=== PATIENT | male | born 1945 | race Caucasian/White ===

== ENCOUNTER 2024-08-05 16:29 | Inpatient (IN) | payer OTHER, SELFPAY ==
[2024-08-05] VITALS (9 sets, daily range): BP systolic 152–189; BP diastolic 72–100
[2024-08-05 13:03] LABS: % Basophils 0.7 % (0-2); % Eosinophils 1.6 % (0-6); % Immature Granulocytes 0.3 % (0-0.5); % Lymphocytes 18.6 % (20.5-51.1); % Neutrophils 71.8 % (42.2-75.2); Absolute Eosinophils 0.1 10^3/uL (0-0.7); Absolute Lymphocytes 1.1 10^3/uL (1.2-3.4); Absolute Monocytes 0.4 10^3/uL (0.1-0.6); Absolute Neutrophils 4.4 10^3/uL (1.4-6.5); Hematocrit 28.9 % (39.0-52.0); Hemoglobin 9.1 g/dL (13.0-18.0); Mean Corp Hgb Conc. 31.5 g/dL (33.0-37.0); Mean Corpuscular Hgb 30.5 pg (27.0-31.0); Mean Platelet Volume 10.1 fL (7.4-10.4); Nucleated Red Blood Cells % 0 % (-); Platelet Count 266 10^3/uL (130-400); Red Blood Cell Count 2.98 10^6/uL (4.70-6.10); Red Cell Dist. Width 14.5 % (11.5-14.5); White Blood Cell Count 6.1 10^3/uL (4.8-10.8)
[2024-08-05 13:35] LABS: ALT (SGPT) 10 U/L (0-50); AST (SGOT) 12 U/L (17-59); Albumin 4.6 g/dl (3.5-5.0); Alkaline Phosphatase 61 U/L (38-126); Blood Urea Nitrogen 89 mg/dl (9-20); Calcium 9.2 mg/dl (8.4-10.2); Carbon Dioxide 9 mmol/L (22-30); Chloride 112 mmol/L (98-107); Glucose 105 mg/dl (70-99); Potassium 6.9 mmol/L (3.5-5.1); Sodium 141 mmol/L (135-145); Total Bilirubin 0.4 mg/dl (0.2-1.3); Total Protein 7.3 g/dl (6.3-8.2)
--- NOTE | 2024-08-05 13:39 | ED.GENMED ---
History of Present Illness
General
Chief Complaint: Abnormal Lab Value
Source: patient and family
Time Seen by Provider: 08/05/24 12:52
History of Present Illness
History of Present Illness:
78-year-old male who admits that he does not truly seek preventative medical care who presents for evaluation after he had labs as an outpatient that showed suspected renal failure. The patient does admit that sometimes he has had urinating
difficulties. He states he often wakes up and only to urinate will you have to urinate every 2 hours. Patient states he has had a catheter in the past. Over the last few months has had some fatigue, weakness, weight loss and loss of appetite. No
vomiting. No fevers. Does admit to abdominal distention but denies pain. No hematuria.
Past History
Past History
ED Past Medical History: Other ('Urinating problems'.)
ED Past Surgical History: Orthopedic
Social History
Tobacco: Non-smoker
Personal:
Employment: Retired
Phy Exam
Physical Exam
Physical Exam:
CONSTITUTIONAL Patient alert and oriented to person, place and time. Well-appearing. Vital signs reviewed.
HEAD atraumatic, normocephalic.
EYES eyelids normal to inspection, Pupils equally round and reactive to light, Extraocular muscles intact, Conjunctiva normal, Sclera normal.
NECK normal range of motion, Trachea midline, no jugular venous distention.
RESPIRATORY CHEST No respiratory distress noted, Chest expansion equal, Bilateral breath sounds clear.
CARDIOVASCULAR regular rate and rhythm, Heart sounds normal.
ABDOMEN distention of lower abdomen up to the umbilicus. Bedside ultrasound shows that it is suspected to be the urinary bladder.
BACK normal inspection, no obvious deformities
UPPER EXTREMITY range of motion normal, Motor strength normal, no cyanosis, no edema.
LOWER EXTREMITY range of motion normal, Motor strength normal, no cyanosis, no edema.
NEURO Speech normal, No focal motor deficits, [place] coma scale 15, Memory normal, Cranial Nerves intact to screening exam.
SKIN skin warm, dry, and normal in color.
PSYCHIATRIC patient oriented to person place and time, Normal affect.
Course
Orders/Labs/Results
Orders:
Orders
08/05/24 12:49
CMP [Comprehensive Metabolic Panel] Urgent
Complete Blood Count/With Diff Urgent
Magnesium Urgent
Comment: ADD ON
08/05/24 13:20
Add On- LAB Urgent
Tests Added?: Mg
08/05/24 13:36
CT Abd/pel Without Iv Or Oral Urgent
Comment:
Reason For Exam: acute renal failure, weak
08/05/24 13:39
Garner Placement- Treatment ONCE
Reason for insertion: Acute Retention
08/05/24 13:40
Electrocardiogram (*1) Urgent
Reason for Study: Fatigue / Weakness
EKG- Treatment ONCE
08/05/24 13:48
Urinalysis Reflex To Culture Urgent
Date Specimen was Collected: 08/05/24
Time Specimen was Collected: 13:47
08/05/24 13:52
Sodium Bicarbonate 50 meq IV NOW STA
Sodium Zirconium Cyclosilicate [Lokelma] 10 gram PO NOW STA
08/05/24 13:54
Dextrose 50%-Water [Dextrose 50% Syringe] 12.5 grams IV [id number] PRN
Dextrose 50%-Water [Dextrose 50% Syringe] 25 grams IV NOW STA
Insulin Human Regular [Novolin R] 10 units IV NOW STA
08/05/24 13:55
Bedside Glucose- Treatment DIRECTED
Bedside Glucose- Treatment ONCE
08/05/24 18:24
Potassium Urgent
Comment: draw 4 hours after Lokelma administered
Abnormal Lab Results
08/05/24
12:49
RBC 2.98 L 10^6/uL
(4.70-6.10)
Hgb 9.1 L g/dL
(13.0-18.0)
Hct 28.9 L %
(39.0-52.0)
MCV 97.0 H fL
(80.0-94.0)
MCHC 31.5 L g/dL
(33.0-37.0)
Absolute Lymphs (auto) 1.1 L 10^3/uL
(1.2-3.4)
Lymphocytes % 18.6 L %
(20.5-51.1)
Potassium 6.9 H* mmol/L
(3.5-5.1)
Chloride 112 H mmol/L
(98-107)
Carbon Dioxide 9 L* mmol/L
(22-30)
BUN 89 H mg/dl
(9-20)
Creatinine 6.4 H* mg/dL
(0.7-1.3)
Glucose 105 H mg/dl
(70-99)
AST 12 L U/L
(17-59)
08/05/24 12:49
Vital Signs
Initial and Last Documented VS:
Initial Vital Signs
Temp Pulse Resp BP Pulse Ox
98.4 F 99 16 183/89 100
08/05/24 12:43 08/05/24 12:43 08/05/24 12:43 08/05/24 12:43 08/05/24 12:43
Last Documented Vital Signs
Temp Pulse Resp BP Pulse Ox
98.4 F 82 20 189/88 100
08/05/24 12:43 08/05/24 13:15 08/05/24 13:15 08/05/24 13:11 08/05/24 13:18
MDM/Problems Addressed
MDM/Problems Addressed:
Acute urinary retention, acute hyperkalemia, acute renal failure, acute hypertension
*Radiology
Radiology exam reviewed: preliminary read by ED provider (No free air but hydro noted, await radiology read)
*Pulse Oximetry
Patient hypoxic: no
*EKG
Interpreted by ED Provider?: Yes
Interpretation: abnormal
Rate: normal
Rhythm: sinus
Davin: left axis deviation
QRS Pattern: left vent hypertrophy
Ischemia: non-specific ST changes
*Critical Care Note
Total Time (30-74mins, 75-104mins- exclusive of procedures): 40 minutes
Data Reviewed
Review of Other/Old Records Reveals: Labs (Palpitations labs reviewed showing elevated PSA, elevated creatinine)
Source: patient and family
Prescriptions/Medications Considered But Not Given:
Considered antibiotics but urinalysis negative
Patient Management
Discussion with other providers: Hospitalist and Group Practice Pediatrician (Case discussed with nephrology who will evaluate the patient.)
Escalation/DeEscalation of care consider admission/obs:
78-year-old male who presents with fatigue and weakness. Found to be in acute renal failure with more than 3 L in his bladder on Garner catheter placement. Being seen by nephrology. Check CT. Admit. Hyperkalemia meds given. Does have slight
widening of his QRS on EKG but may be related to LVH.
ED Attending Note
-
Portions of this chart may have been created with voice recognition software.� Occasional wrong word or��sound alike� substitutions may have occurred due to the inherent limitations of voice recognition software.
Discharge Plan
Departure
Patient Disposition: Admit
Date of Disposition: 08/05/24
Time of Disposition: 14:34
Admit to: IMU
Presentation/result/management discussed w/ accepting MD/DO: Hospitalist
Discharge Problem:
Acute renal failure (ARF), Acute hyperkalemia, Acute on chronic urinary retention
Prescriptions:
No Action
No Current Medications
0
Interventions
Interventions:
*Risk Screen - Suicide Last Done: 08/05/24 13:18
*General Assessment Last Done: 08/05/24 12:43
*Neglect/Abuse Screening Last Done: 08/05/24 13:18
ED- Fall Risk Assessment Last Done: 08/05/24 13:18
*ED COVID-19 Vaccine History Last Done: 08/05/24 12:43
Discharge Date and Time
Print Language: MAURITIAN
[2024-08-05] MEDS: LOKELMA 10 GRAM PO (14:04)
[2024-08-05] MEDS: SODIUM BICARBONATE 50 MEQ IV (14:05)
[2024-08-05] MEDS: DEXTROSE 50% SYRINGE 25 GRAMS IV (14:05)
[2024-08-05] MEDS: NOVOLIN R 10 UNITS IV (14:05)
[2024-08-05 14:16] LABS: Urine Albumin Trace (Neg - Trace); Urine Bilirubin Negative (Negative); Urine Character Clear (Clear); Urine Color Yellow; Urine Glucose Negative (Negative); Urine Ketone Negative (Negative); Urine Leukocyte Negative (Negative); Urine Nitrite Negative (Negative); Urine Occult Blood Negative (Negative); Urine Urobilinogen Negative (Neg - 1+)
--- NOTE | 2024-08-05 15:28 | W.CON.NEPH ---
Consultation
-
Date/Time Consultation Requested: 08/05/24 1400
Date/Time Consultation Performed: 08/05/24 1530
Requesting Provider: Dr. Valenzuela
Performing Provider: Dr. Bruce
Reason for Consultation: SONIA, hyperkalemia
Medical History
-
Chief Complaint: SONIA
Past Medical History
BPH
left TEJAL
Social History
Tobacco: Non-Smoker
Alcohol: Occasional
Family History
no CKD
Family History: Not Pertinent
Allergies / Home Medications
Allergy/AdvReac Type Severity Reaction Status Date / Time
No Known Allergies Allergy Verified 08/05/24 12:45
�Medication �Instructions �Recorded �Confirmed �Type
No Meds [No Current Medications] 08/05/24 08/05/24 History
Review of Systems
-
polyuria, low volumes
decreased appetite, weight loss 20#/year
All other systems: Negative unless noted
Physical Exam
Vital Signs
Vital Signs
Temp Pulse Resp BP Pulse Ox
98.4 F 82 20 189/88 100
08/05/24 12:43 08/05/24 13:15 08/05/24 13:15 08/05/24 13:11 08/05/24 13:18
Lab Results
WBC 6.1 10^3/uL (4.8-10.8) 08/05/24 12:49
RBC 2.98 10^6/uL (4.70-6.10) L 08/05/24 12:49
Hgb 9.1 g/dL (13.0-18.0) L 08/05/24 12:49
Hct 28.9 % (39.0-52.0) L 08/05/24 12:49
Plt Count 266 10^3/uL (130-400) 08/05/24 12:49
Sodium 141 mmol/L (135-145) 08/05/24 12:49
Chloride 112 mmol/L (98-107) H 08/05/24 12:49
Carbon Dioxide 9 mmol/L (22-30) L* 08/05/24 12:49
BUN 89 mg/dl (9-20) H 08/05/24 12:49
Creatinine 6.4 mg/dL (0.7-1.3) H* 08/05/24 12:49
eGFR 8.30 08/05/24 12:49
Glucose 105 mg/dl (70-99) H 08/05/24 12:49
Calcium 9.2 mg/dl (8.4-10.2) 08/05/24 12:49
Albumin 4.6 g/dl (3.5-5.0) 08/05/24 12:49
Physical Exam
Patient is awake alert oriented and in no distress. Mood and affect were pleasant, insight and judgment were good. Pupils are equal round and reactive to light, extraocular movements are intact, sclera were anicteric. Hearing was normal, ears and
nose are intact. Oropharynx was clear. Neck was supple with trachea midline and no thyromegaly. Heart was regular rate and rhythm without rubs. Lower extremities without edema. Lungs were clear to auscultation bilaterally and with normal
excursion. Abdomen was soft, nontender, with normal active bowel sounds, and no hepatosplenomegaly. Skin was without rash and with normal turgor.
Data Reviewed
-
CT Scan: Image Personally Visualized and interpreted (CT scan on 08/05/2024 by my reading shows severe bilateral hydronephrosis, hyperlucent lesion L2)
Labs: Labs Reviewed by me
Old Records: Reviewed (On 08/04/2024 creatinine 5.86, potassium 6.5, bicarbonate 14, hemoglobin 9.1, PSA 24.7, A1c 5.4)
Assessment/Plan
-
Assessment
acute kidney injury
Bilateral hydronephrosis
BPH
Elevated PSA
Weight loss, decreased appetite
Hyperkalemia
Metabolic acidosis
Plan
Obtain records from primary for blood work 2 years ago
Treat potassium medically
Serial BMP
IV fluids with bicarbonate
Flomax
Urology evaluation
Await CT read regarding hyperlucent L2 lesion
[2024-08-05 15:33] LABS: Glucose - Point of Care 62 mg/dl (70-99)
[2024-08-05 15:55] LABS: Glucose - Point of Care 86 mg/dl (70-99)
--- NOTE | 2024-08-05 16:17 | HPS.HSE ---
Family Physician
-
Family Physician: Andrew Turner
Chief Complaint
-
Abnormal outpatient laboratory work-up
History of Present Illness
Patient is a 78 years old male with no prior medical history, not following with physicians regularly, not on any prescriptive medications who was brought to urgent care center today earlier by family with concern for decreased appetite close to 15
pounds weight loss over a year. Apparently blood work was abnormal and consistent with acute kidney failure and significantly elevated creatinine. Patient presents to the emergency room today with given concern. Upon evaluation in the emergency
room patient was found to have severe urinary retention with Garner catheter placed and close to 2 L of urine removed. Additional and repeated workup consistent with severe hyperkalemia, SONIA with metabolic acidosis.
Medical History
Past Medical History
Past Medical History: Reports None
Past Surgical History: Reports None
Social History
Tobacco: Non-smoker
Alcohol: None
Drug: None
Personal:
Living: With Family
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
Family History
Family History: Not pertinent
Allergies / Home Medications
Allergies reflects when Allergies were last updated in [facility].
Home Medications with original date entered in [facility]
Allergy/Medication List:
Allergies
Allergy/AdvReac Type Severity Reaction Status Date / Time
No Known Allergies Allergy Verified 08/05/24 12:45
Home Medications
No Meds [No Current Medications] 08/05/24
Review of Systems
-
A 12 point ROS was completed and negative except as noted: Yes
Respiratory: Reports No Symptoms
Cardiac: Reports No Symptoms
Abdomen/GI: Reports No Symptoms
: Reports Frequency and Difficulty Voiding; Denies Dysuria
Musculoskeletal: Reports No Symptoms
Physical Exam
Vital Signs
Vital Signs
Temp Pulse Resp BP Pulse Ox
98.4 F 94 14 163/76 99
08/05/24 12:43 08/05/24 15:45 08/05/24 15:45 08/05/24 15:30 08/05/24 15:45
Physical Exam
General: Well Developed, Well Nourished and No Apparent Distress
HEENT: NormoCephalic, Moist mucous membranes and Atraumatic
Respiratory: Clear
Cardiac: S1/S2 and Regular Rhythm; No Murmur or Rub
GI: Soft, Non Tender, Non Distended and Normal Bowel Sounds; No Organomegaly
Rectal: Deferred by Provider
Genito-urinary: Garner
Musculoskeletal: No Clubbing, No Cyanosis and No Edema
Skin: No Rash
Neuro: Awake, Alert, Oriented, AO x 3 and Nonfocal/grossly intact
Laboratory Results
-
08/05/24 12:49
08/05/24 18:24
Laboratory Results
Total Bilirubin 0.4 mg/dl (0.2-1.3) 08/05/24 12:49
AST 12 U/L (17-59) L 08/05/24 12:49
ALT 10 U/L (0-50) 08/05/24 12:49
Alkaline Phosphatase 61 U/L (38-126) 08/05/24 12:49
Data Reviewed
-
Lab Data: Labs Reviewed by me
Impression/Plan
-
IMPRESSION:
75 years old male with no prior medical history who presents with generalized fatigue, low oral intake, weight loss, SONIA with severe urinary retention.
SONIA with severe obstructive uropathy and hydronephrosis
Elevated PSA 24 on outpatient blood work on 08/04/24
Suspected BPH
Metabolic acidosis
Hyperkalemia
Chronic normocytic anemia.
Reported significant weight loss and poor appetite
PLAN:
CT of the abdomen pelvis pending, in my review with his significant bilateral hydronephrosis.
Garner catheter placed in ED with 3 L urine drained.
Hyperkalemia treated
Maintain Garner
Urology/nephrology consultation.
IV fluids with bicarbonate baseline serial BMP.
Start Flomax
Low potassium diet
Chronic normocytic anemia baseline patient reports colonoscopy about 2 years ago.
Check iron stores
Follow hemoglobin
Full code
Mechanical DVT phylaxis
[2024-08-05] MEDS: SODIUM BICARBONATE 1150 MEQ IV (16:25)
[2024-08-05 17:09] LABS: Blood Urea Nitrogen 91 mg/dl (9-20); Calcium 8.6 mg/dl (8.4-10.2); Carbon Dioxide 12 mmol/L (22-30); Chloride 114 mmol/L (98-107); Glucose 104 mg/dl (70-99); Iron 44 ug/dl (49-181); Percent Saturation 18 % (20-50); Potassium 5.6 mmol/L (3.5-5.1); Sodium 143 mmol/L (135-145); Total Iron Binding Capacity 234 ug/dl (261-462)
[2024-08-05 17:21] LABS: eGFR 9.54
--- NOTE | 2024-08-05 18:37 | PTCARENOTE ---
Pt arrived to floor from ED via stretcher. Ambulated to unit bed with minimal assistance holding Garner bag inserted in ED. Punch red blood in Garner. Pe denying pain. Bicarb gtt infusing. Health historty obtained with patient and family members at
bedside infusing.
[2024-08-05] MEDS: FLOMAX 0.4 MG PO (20:47)
[2024-08-06 03:55] VITALS: BP 153/75
[2024-08-06 05:36] LABS: % Basophils 0.5 % (0-2); % Eosinophils 2.7 % (0-6); % Immature Granulocytes 0.2 % (0-0.5); % Lymphocytes 14.8 % (20.5-51.1); % Monocytes 8.8 % (1.7-9.3); Absolute Eosinophils 0.2 10^3/uL (0-0.7); Absolute Lymphocytes 0.9 10^3/uL (1.2-3.4); Absolute Monocytes 0.5 10^3/uL (0.1-0.6); Absolute Neutrophils 4.3 10^3/uL (1.4-6.5); Hematocrit 24.5 % (39.0-52.0); Hemoglobin 8.2 g/dL (13.0-18.0); Mean Corp Hgb Conc. 33.5 g/dL (33.0-37.0); Mean Corpuscular Volume 89.7 fL (80.0-94.0); Nucleated Red Blood Cells % 0 % (-); Platelet Count 216 10^3/uL (130-400); Red Blood Cell Count 2.73 10^6/uL (4.70-6.10); Red Cell Dist. Width 14.2 % (11.5-14.5); White Blood Cell Count 5.8 10^3/uL (4.8-10.8)
[2024-08-06] MEDS: SODIUM BICARBONATE 1150 MEQ IV ×2 (05:59→22:47)
[2024-08-06 06:29] LABS: Blood Urea Nitrogen 82 mg/dl (9-20); Calcium 8.6 mg/dl (8.4-10.2); Carbon Dioxide 15 mmol/L (22-30); Chloride 110 mmol/L (98-107); Glucose 103 mg/dl (70-99); Potassium 5.2 mmol/L (3.5-5.1); Sodium 143 mmol/L (135-145)
[2024-08-06 06:47] LABS: eGFR 9.96
[2024-08-06 07:44] VITALS: BP 164/82
[2024-08-06] MEDS: FLOMAX 0.4 MG PO (08:09)
--- NOTE | 2024-08-06 09:59 | W.PN.URO.CBU ---
Today's Communication / Plan
-
teach pt leg bag and flanagan care
Assessment / Plan
-
bph r/out acp but creatinie down with flanagan will keep flanagan and for now no perc neph tubes nor prostate bx
Diagnosis
-
Date of Service: August 06, 2024
-
Patient Diagnosis: acute on chronuic renal failure in pt with 3 liters urine in bladder and psa 24 bilateal hydro
Post Op Day:
Subjective
-
feel stronger
Objective
-
Vital Signs
Temp Pulse Resp BP Pulse Ox
98.4 F 80 16 164/82 99
08/06/24 07:44 08/06/24 07:44 08/06/24 07:44 08/06/24 07:44 08/06/24 07:44
Intake and Output
08/05/24 08/06/24 08/07/24
06:59 06:59 06:59
Intake Total 1200 / 1200
Output Total 3500 / 3500
Balance -2300 / -2300
Intake:
Oral fluids 240 / 240
IV fluids (Total) 960 / 960
Output:
Urine, Flanagan 3500 / 3500
Laboratory Results
08/06/24 05:23
08/06/24 05:23
Review of Systems
-
: Difficulty Voiding
Physical Exam
-
General - well developed, well nourished, no acute distress
Chest - clear bilaterally
Abdomen - soft, non-tender, positive bowel sounds, no CVAT, no incisional pain or distention
Genitalia - normal
Rectal - normal
Skin - warm & dry with no rash
Neuro - AOx3, no motor deficits
Extremities - no clubbing, no cyanosis, no edema
Incision - clean, dry
Dressing - clean, dry, intact
Care Review
Data Reviewed
Discussed with: Hospitalist and Nursing
CT Scan: Image Pers Reviewed
--- NOTE | 2024-08-06 10:36 | CM ---
Patient seen at bedside. Patient stated that he lives with his in a split level home. patient has no DME previously and has not needed SNF or VN. Patient stated that his PCP is Dr. Turner but he has been moving and he has an appointment in
October with him. Patient [facility] and plan is to go home. Patient stated that he is very independent. Patient is awaiting his and son to visit shortly. CM will continue to follow for discharge planning needs.
Plan; home with VN vs home with no needs
--- NOTE | 2024-08-06 10:55 | W.PN.NEPH.PH ---
Today's Communication / Plan
-
IVF
Assessment/Plan
-
Assessment
acute kidney injury
Bilateral hydronephrosis
BPH
Elevated PSA
Weight loss, decreased appetite
Hyperkalemia
Metabolic acidosis
Plan
Obtain records from primary for blood work 2 years ago
follow BMP
continue IV fluids with bicarbonate
Flomax
-
-
Date of Service: August 06, 2024
CC / HPI / ROS
-
Chief Complaint:
SONIA
History of Present Illness:
SONIA/Cr down to 5.5
nonoliguric with flanagan for obstructive uropathy
K down to 5.2
acidosis improving on IVF
Review of Systems:
no CP/SOB
Labs
-
Labs:
WBC 5.8 10^3/uL (4.8-10.8) 08/06/24 05:23
RBC 2.73 10^6/uL (4.70-6.10) L 08/06/24 05:23
Hgb 8.2 g/dL (13.0-18.0) L 08/06/24 05:23
Hct 24.5 % (39.0-52.0) L 08/06/24 05:23
Plt Count 216 10^3/uL (130-400) 08/06/24 05:23
Sodium 143 mmol/L (135-145) 08/06/24 05:23
Potassium 5.2 mmol/L (3.5-5.1) H 08/06/24 05:23
Chloride 110 mmol/L (98-107) H 08/06/24 05:23
Carbon Dioxide 15 mmol/L (22-30) L 08/06/24 05:23
BUN 82 mg/dl (9-20) H 08/06/24 05:23
Creatinine 5.5 mg/dL (0.7-1.3) H* 08/06/24 05:23
eGFR 9.96 08/06/24 05:23
Glucose 103 mg/dl (70-99) H 08/06/24 05:23
Calcium 8.6 mg/dl (8.4-10.2) 08/06/24 05:23
Albumin 4.6 g/dl (3.5-5.0) 08/05/24 12:49
Physical Exam
-
Vital Signs:
Vital Signs
Temp Pulse Resp BP Pulse Ox
98.4 F 80 16 164/82 99
08/06/24 07:44 08/06/24 07:44 08/06/24 07:44 08/06/24 07:44 08/06/24 07:44
Cardiovascular:: Regular rate and rhythm
Respiratory:: Bilateral: CTA
Lung Excursion:: Normal
Abdomen:: Nontender and Soft
Bowel Sounds:: Normal
Extremity Edema:: None: Bilateral:
Flanagan Catheter: Yes
[2024-08-06 11:06] VITALS: BP 142/70
[2024-08-06 11:41] VITALS: BMI 23.8
[2024-08-06 11:43] VITALS: BMI 23.6
[2024-08-06] MEDS: FERRLECIT 110 MG IV (14:47)
--- NOTE | 2024-08-06 14:49 | W.PN.HOSP.TC ---
Today's Communication/Plan
-
Maintain Garner catheter.
Continue alkalinized IV fluids
Follow BMP
Assessment / Plan
Assessment / Plan
IMPRESSION:
75 years old male with no prior medical history who presents with generalized fatigue, low oral intake, weight loss, SONIA with severe urinary retention.
SONIA with severe obstructive uropathy and hydronephrosis
Elevated PSA 24 on outpatient blood work on 08/04/24
Suspected BPH
Metabolic acidosis
Hyperkalemia
Chronic normocytic anemia.
Reported significant weight loss and poor appetite
PLAN:
CT of the abdomen pelvis pending, in my review with his significant bilateral hydronephrosis.
Garner catheter placed in ED with 3 L urine drained.
Hyperkalemia treated
Maintain Garner
Urology/nephrology consultation.
IV fluids with bicarbonate baseline serial BMP.
Started on Flomax
Low potassium diet
Chronic normocytic anemia baseline patient reports colonoscopy about 2 years ago.
Check iron stores
Follow hemoglobin
Full code
Mechanical DVT phylaxis
Anticipated Discharge: > 48 hours
Subjective/Interval History
-
Date of Service: August 06, 2024
Objective Data
-
Labs:
Laboratory Results
08/06/24
05:23
WBC 5.8
Hgb 8.2 L
Hct 24.5 L
Plt Count 216
Sodium 143
Potassium 5.2 H
Chloride 110 H
Carbon Dioxide 15 L
BUN 82 H
Creatinine 5.5 H*
Glucose 103 H
Calcium 8.6
Vital Signs:
Vital Signs
Temp Pulse Resp BP Pulse Ox
98 F 89 16 142/70 98
08/06/24 11:06 08/06/24 11:06 08/06/24 11:06 08/06/24 11:06 08/06/24 11:06
I&O
08/05/24 08/06/24 08/07/24
06:59 06:59 06:59
Intake Total 1200 / 1200
Output Total 3500 / 3500
Balance -2300 / -2300
Physical Exam
-
General: Well Developed and No Apparent Distress
HEENT: Normocephalic, Atraumatic and Moist Mucous Membranes
Respiratory: Clear to Auscultation
Cardiac: Regular Rhythm and S1/S2; Negative Murmur, Rub or Gallop
GI: Soft, Nontender, Nondistended and Normal Bowel Sounds; Negative Organomegaly
Rectal: Deferred by Provider
Genito-urinary: Garner
Musculoskeletal: No Clubbing, No Cyanosis and No Edema
Skin: Negative Rash
Neuro: Nonfocal/Grossly Intact
[2024-08-06 15:22] VITALS: BP 139/68
[2024-08-06 18:51] LABS: Hepatitis C Antibody Negative (Negative)
[2024-08-06 19:48] VITALS: BP 128/64
[2024-08-06 23:00] VITALS: BP 118/83
[2024-08-07] VITALS (7 sets, daily range): BP systolic 118–154; BP diastolic 64–91; BMI 21.6
[2024-08-07 05:50] LABS: Hematocrit 23.3 % (39.0-52.0); Hemoglobin 7.9 g/dL (13.0-18.0); Mean Corp Hgb Conc. 33.9 g/dL (33.0-37.0); Mean Corpuscular Hgb 29.8 pg (27.0-31.0); Mean Corpuscular Volume 87.9 fL (80.0-94.0); Mean Platelet Volume 10.1 fL (7.4-10.4); Platelet Count 222 10^3/uL (130-400); Red Blood Cell Count 2.65 10^6/uL (4.70-6.10); Red Cell Dist. Width 13.9 % (11.5-14.5); White Blood Cell Count 6.6 10^3/uL (4.8-10.8)
[2024-08-07 06:08] LABS: Blood Urea Nitrogen 80 mg/dl (9-20); Calcium 8.4 mg/dl (8.4-10.2); Carbon Dioxide 25 mmol/L (22-30); Chloride 105 mmol/L (98-107); Estimated Creatinine Clearance 12 ml/min; Glucose 93 mg/dl (70-99); Potassium 4.5 mmol/L (3.5-5.1); Sodium 141 mmol/L (135-145)
--- NOTE | 2024-08-07 06:23 | PTCARENOTE ---
Tele monitor alarming as irreg HR and Afib, HR 90s-100s. EKG Aflutter w/ variable AV block, left ventricular hypertrophy w/ repolarization abnormality and prolonged QT. Pt asymptomatic, BP 118/71. VARIETY PERFORMER notified that K+ was within normal limits but
no mag has been drawn today. Stat add-on mag added. Plan of care ongoing.
--- NOTE | 2024-08-07 06:37 | W.PN.UPDATE ---
Update Note
Progress Note Update
RN notified INSURANCE CLAIMS PROCESSOR of irregular rhythm, EKG confirms Aflutter with variable AV block. Previous EKG Sinus Rhythm with 1st degree A-V block with occasional premature ventricular complexes. will add mag, TSH, Troponin, to the lab. Patient is asymptomatic
with stable VS. Will consult Application Counselor.
[2024-08-07 07:11] LABS: Magnesium 1.5 mg/dl (1.6-2.3)
[2024-08-07] MEDS: FLOMAX 0.4 MG PO (08:45)
--- NOTE | 2024-08-07 08:50 | CON.CAR ---
Addendum entered and electronically signed by Yinka Dobbins MD 08/07/24 15:32:
Ejection fraction 45 to 50%. Toprol has been added. Not a candidate for GHADA/ARB/Aldactone due to renal insufficiency.
Eventual ischemic workup as outpt
Addendum entered and electronically signed by Yinka Dobbins MD 08/07/24 15:31:
I saw and examined the patient.
The WASTE WATER OPERATOR or PA's note was reviewed and I agree with the note.
Comment: General: Well developed, well nourished in NAD.
Neck: Supple, no JVD, HJR, carotids +2 B/L, no bruits bilaterally.
Heart: Non displaced PMI, RRR, no murmurs, No S3, S4, no rubs.
Lungs: Scattered rhonchi
Extremities: No clubbing, cyanosis or edema bilaterally.
Neuro: Grossly nonfocal, awake, alert and oriented x3.
Clementina has no past medical history. He presented for generalized fatigue with poor p.o. intake and loss of 15 pounds over the past year. He does not have acute needed for his ambulatory urinary retention. Creatinine was 6.4 on admission.
Cardiology consulted for atrial tachycardia versus atrial flutter. Will start low-dose beta-john. He is asymptomatic but has a higher CHADS2 score. Will consider anticoagulation when anemia and hematuria has been worked up. Will check
echocardiogram. There are no signs or symptoms of CHF.
Original Note:
Consultation
Consultation Request
Date/Time Consultation Requested: 08/07/2024, 06 49
Date/Time Consultation Performed: 08/07/2024, 08 50
Requesting Provider: MECHE Eubanks
Performing Provider: MECHE Holbrook/Yinka Zuleta MD
Reason for Consultation: Atrial flutter
Medical History
-
Chief Complaint: Fatigue
History of Present Illness:
75-year-old male who denies past medical history presented to ED with generalized fatigue, low oral intake, weight loss of 15 pounds over the past year, acute kidney injury with severe urinary retention. Admitting labs notable for potassium 6.9,
creatinine 6.4. Urology and nephrology have been consulted and Garner was placed for obstructive uropathy. Overnight he was noted to go into atrial flutter with variable heart rate response.
Patient reports he has been in good health until this past winter when he has felt more fatigued with exertion and has lost approximately 15 pounds unintentionally. He denies shortness of breath, chest pain, palpitations, lightheadedness, syncope,
edema, PND, orthopnea.
He denies previous cardiac history including CAD, MD, heart failure, arrhythmias, valvular disorders
He was not on any medications prior to admission
Past medical history:
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
Denies other past medical history
Past Medical History
Past Medical History: Other (As above in HPI)
Social History
Tobacco: Non-Smoker
Alcohol: Occasional (Now rare. In past drank couple alcoholic beverages daily)
Drug: None
Family History
Family History: Other (Son with DM)
Allergies / Home Medications
Allergy/AdvReac Type Severity Reaction Status Date / Time
No Known Allergies Allergy Verified 08/05/24 12:45
�Medication �Instructions �Recorded �Confirmed �Type
No Meds [No Current Medications] 08/05/24 08/05/24 History
Review of Systems
-
History Source: Patient
All other systems: Negative unless noted
Physical Exam
Vital Signs
Temp Pulse Resp BP Pulse Ox
99.1 F 86 16 154/91 95
08/07/24 07:51 08/07/24 07:51 08/07/24 07:51 08/07/24 07:51 08/07/24 07:51
GEN: No distress, awake, Ox3
HEENT: supple, anicteric, mmm
LUNGS: CTA, no wheezes/rales
CV: Tachy, irreg, S1/S2, no murmur
ABD: soft, BS+, NT/ND
EXT: No edema
NEURO: Gross non-focal
SKIN: No rash
Lab Results
08/07/24 05:14
08/07/24 05:14
Impression / Plan
-
PCP: Dr. Turner
Has not seen cardiology in past
Impression:
Atrial flutter
Acute kidney injury
Hyperkalemia
Anemia
severe obstructive uropathy
hydronephrosis
Coronary calcification on abdominal CT
Urinary retention
Suspected BPH
Weight loss, poor appetite
Generalized fatigue
No previous cardiovascular testing noted
CT abdomen/pelvis: Severe bilateral hydroureternephrosis, severe prostamegaly. In view of lung bases there is coronary artery calcifications, mild christine and aortic annular calcifications, mild cardiomegaly
EKG 08/07/2024 0000, personally reviewed: Probable atrial flutter with variable AV block, IVCD, left axis deviation, nonspecific ST-T wave abnormality
Atrial flutter: He is asymptomatic. Heart rates on telemetry, personally reviewed, 80s-low 100s. No significant pauses or bradycardia arrhythmias. Would start low-dose beta-john. [id number] score is 3. Currently has hematuria and anemia
so would hold off on starting anticoagulation but consider starting in future.
Check echocardiogram. Continue telemetry. BPs variable,120s-160s/60-80s.
Hyperkalemia: Potassium has improved and is now 4.5 (08/07/2024) compared to 6.9 on admission on 08/25.
Coronary calcification on CT abdomen: He has no anginal symptoms. Consider future lipid lowering therapy.
Acute kidney injury. Thought to be due to severe obstructive uropathy and hydronephrosis. Creatinine gradually improving w/ IVF, down to 5.1 08/07/2024, was 6.4 on admission 08/05/24. No nephrotoxic agents
Anemia: Hemoglobin trending down and has hematuria. Iron studies being checked and on Iron repletion. Hold on anticoagulation for atrial flutter.
Data Reviewed
-
EKG: Tracing Personally Visualized and interpreted
--- NOTE | 2024-08-07 09:50 | PN.CDI ---
CDI
- -
CDI:
Physician Documentation Request
Admit Date: 08/05/24 16:29
Dear Doctor Bianca,
Patient admitted for SONIA.
08/06 Miner Helper Assessment: 'During visit RD able to visulize protrusion of clavcial, some apparent ribs and temporal wasting. With < 75% estimated needs > 1 month and observed muscle and fat wasting pt meets AND/ASPEN criteria for moderate
protein calorie malnutrition of acute illness.'
Based on the above information and your assessment, which of the following most accurately represents the patient's nutritional status?
Moderate protein calor malnutrition
Other
[place] Criteria ([facility] Hospitalist 2017)
2 or more criteria must be present for either
non severe or severe malnutrition
Note that the criteria differs related to the
presence of an acute or chronic illness
Acute Illness Chronic Illness
Energy Intake Non Severe: <75% for >7 days Non Severe: <75% for >1 month
Severe: <50% for >5 days Severe: <75% for >1 month
Weight Loss Non Severe: 1-2% over 1 week Non Severe: 5% over 1 month
5% over 1 month 7.5% over 3 months
7.5% over 3 months 10% over 6 months
1 year N/A 20% over 1 year
Severe: >2% over 1 week Severe: >5% over 1 month
>5% over 1 month >7.5% over 3 months
>7.5% over 3 months >10% over 6 months
1 year N/A >20% over 1 year
Body Fat Non Severe: Mild Decrease Non Severe: Mild Loss
Severe: Moderate Decrease Severe: Severe Loss
Muscle Mass Non Severe: Mild Decrease Non Severe: Mild Loss
Severe: Moderate Decrease Severe: Severe Loss
Fluid Accumulation Non Severe: Mild Accumulation Non Severe: Mild Accumulation
Severe: Moderate to severe Severe: Moderate to severe
accumulation accumulation
Reduced Intelligence Senior Sergeant Strength Non Severe: N/A Non Severe: N/A
Severe: Measurably reduced Severe: Measurably reduced
Additional criteria that can be used to Determine if Mild or Moderate Malnutrition ([employer]ck Manual 2018)
Mild Moderate Severe
Albumin gm/dl <3.0 gm/dl <2.5 gm/dl <2.0 gm/dl
Pre Albumin mg/dl <15 gm/dl <10 mg/dl <5.0 mg/dl
BMI <18.5 <17 <16
Use of terms such as suspected, likely, concern for, or probable (associated with a specific diagnosis that is being evaluated, monitored, or treated as if it exists) are acceptable and can be coded in the inpatient setting, when documented at the
time of discharge.
Thank you,
Elma Hathaway RN, BSN
CDI Specialist
Available via [place] text
Please use your independent medical judgment in providing your response.
--- NOTE | 2024-08-07 11:17 | W.PN.NEPH.PH ---
Today's Communication / Plan
-
Maintain Flanagan catheter
Follow BMP
Assessment/Plan
-
Assessment
acute kidney injury
Bilateral hydronephrosis
BPH
Elevated PSA
Weight loss, decreased appetite
Hyperkalemia
Metabolic acidosis
Plan
Obtain records from primary for blood work 2 years ago
follow BMP, creatinine down to 5.1 and remains grossly nonoliguric around 3 L
Remains azotemic
continue IV fluids
Hemodynamically stable
Flomax
-
-
Date of Service: August 07, 2024
CC / HPI / ROS
-
Chief Complaint:
SONIA
History of Present Illness:
SONIA/Cr down to 5.1
nonoliguric with flanagan for obstructive uropathy
K down to 4.5
acidosis improving on IVF
Review of Systems:
no CP/SOB
Nonoliguric via flanagan ~ 3liters
Labs
-
Labs:
WBC 6.6 10^3/uL (4.8-10.8) 08/07/24 05:14
RBC 2.65 10^6/uL (4.70-6.10) L 08/07/24 05:14
Hgb 7.9 g/dL (13.0-18.0) L 08/07/24 05:14
Hct 23.3 % (39.0-52.0) L 08/07/24 05:14
Plt Count 222 10^3/uL (130-400) 08/07/24 05:14
Sodium 141 mmol/L (135-145) 08/07/24 05:14
Potassium 4.5 mmol/L (3.5-5.1) 08/07/24 05:14
Chloride 105 mmol/L (98-107) 08/07/24 05:14
Carbon Dioxide 25 mmol/L (22-30) 08/07/24 05:14
BUN 80 mg/dl (9-20) H 08/07/24 05:14
Creatinine 5.1 mg/dL (0.7-1.3) H* 08/07/24 05:14
eGFR 10.90 08/07/24 05:14
Glucose 93 mg/dl (70-99) 08/07/24 05:14
Calcium 8.4 mg/dl (8.4-10.2) 08/07/24 05:14
Albumin 4.6 g/dl (3.5-5.0) 08/05/24 12:49
Physical Exam
-
Vital Signs:
Vital Signs
Temp Pulse Resp BP Pulse Ox
98.1 F 85 16 128/66 95
08/07/24 11:09 08/07/24 11:09 08/07/24 11:09 08/07/24 11:09 08/07/24 11:09
Cardiovascular:: Regular rate and rhythm
Respiratory:: Bilateral: CTA
Lung Excursion:: Normal
Abdomen:: Nontender and Soft
Bowel Sounds:: Normal
Extremity Edema:: None: Bilateral:
Flanagan Catheter: Yes
[2024-08-07] MEDS: TOPROL XL 25 MG PO (11:58)
[2024-08-07] MEDS: SODIUM BICARBONATE 1150 MEQ IV (11:58)
--- NOTE | 2024-08-07 12:31 | W.PN.URO.CBU ---
Today's Communication / Plan
-
continue present care
Assessment / Plan
-
bph r/out acp but creatinie down with flanagan will keep flanagan and for now no perc neph tubes nor prostate bx
Diagnosis
-
Date of Service: August 07, 2024
-
Patient Diagnosis:
Post Op Day:
Patient Diagnosis: acute on chronuic renal failure in pt with 3 liters urine in bladder and psa 24 bilateal hydro
Post Op Day:
Subjective
-
feels stronger
Objective
-
Vital Signs
Temp Pulse Resp BP Pulse Ox
98.1 F 80 16 128/66 95
08/07/24 11:09 08/07/24 11:58 08/07/24 11:09 08/07/24 11:58 08/07/24 11:09
Intake and Output
08/06/24 08/07/24 08/08/24
06:59 06:59 06:59
Intake Total 1200 / 1200 195 / 1955
Output Total 3500 / 3500 3200 / 3200
Balance -2300 / -2300 -1244 / -1244
Intake:
Oral fluids 240 / 240 1440 / 1440
IV fluids (Total) 960 / 960 516 / 516
Output:
Urine, Flanagan 3500 / 3500
Urine, Voided 3200 / 3200
Laboratory Results
08/07/24 05:14
08/07/24 05:14
Review of Systems
-
: Difficulty Voiding
Physical Exam
-
General - well developed, well nourished, no acute distress
Chest - clear bilaterally
Abdomen - soft, non-tender, positive bowel sounds, no CVAT, no incisional pain or distention
Genitalia - normal
Rectal - normal
Skin - warm & dry with no rash
Neuro - AOx3, no motor deficits
Extremities - no clubbing, no cyanosis, no edema
Incision - clean, dry
Dressing - clean, dry, intact
Care Review
Data Reviewed
Discussed with: Nursing
[2024-08-07] MEDS: FERRLECIT 110 MG IV (13:12)
--- NOTE | 2024-08-07 14:24 | CM ---
Patient seen at bedside, happy to have breakfast. Patient states he has no concerns about discharge at this time. CM will continue to follow for discharge planning needs.
Plan; home with VN vs home with no needs.
--- NOTE | 2024-08-07 16:06 | W.PN.HOSP.TC ---
Today's Communication/Plan
-
Maintain Garner.
Follow renal function.
IV fluids as per renal
New diagnosis of atrial flutter and cardiomyopathy. Cardiology input noted
Assessment / Plan
Assessment / Plan
IMPRESSION:
75 years old male with no prior medical history who presents with generalized fatigue, low oral intake, weight loss, SONIA with severe urinary retention.
SONIA with severe obstructive uropathy and hydronephrosis
Hematuria
Elevated PSA 24 on outpatient blood work on 08/04/24
Suspected BPH
Metabolic acidosis
Hyperkalemia
Chronic normocytic anemia.
Reported significant weight loss and poor appetite
Atrial flutter, new diagnosis
Cardiomyopathy, new diagnosis
PLAN:
CT of the abdomen pelvis pending, in my review with his significant bilateral hydronephrosis.
Garner catheter placed in ED with 3 L urine drained.
Hyperkalemia treated and improved.
Maintain Garner
Urology/nephrology consultation.
IV fluids with bicarbonate baseline serial BMP.
Started on Flomax
Low potassium diet
Atrial flutter new diagnosis.
Echocardiogram as below.
Continue telemetry monitoring
Initiated on metoprolol
CV3 hold off on initiation of anticoagulation given acute urinary retention/SONIA and hematuria.
Cardiomyopathy
Echocardiogram: Global hypokinesis of LV with LVEF 45%. Mild to moderate TR with PA pressure of 55�60.
Plan is for ischemic workup as outpatient.
Initiated on Toprol
Eventually adjustment of GDMT as renal function improves.
Chronic normocytic anemia baseline patient reports colonoscopy about 2 years ago.
Iron deficiency
Follow hemoglobin
IV iron
Monitor hemoglobin with hematuria
Full code
Mechanical DVT phylaxis
Anticipated Discharge: > 48 hours
Subjective/Interval History
-
Date of Service: August 07, 2024
Objective Data
-
Labs:
Laboratory Results
08/07/24
05:14
WBC 6.6
Hgb 7.9 L
Hct 23.3 L
Plt Count 222
Sodium 141
Potassium 4.5
Chloride 105
Carbon Dioxide 25
BUN 80 H
Creatinine 5.1 H*
Glucose 93
Calcium 8.4
Vital Signs:
Vital Signs
Temp Pulse Resp BP Pulse Ox
98 F 81 16 132/68 97
08/07/24 15:29 08/07/24 15:29 08/07/24 15:29 08/07/24 15:29 08/07/24 15:29
I&O
08/06/24 08/07/24 08/08/24
06:59 06:59 06:59
Intake Total 1200 / 1200 1955 / 1955
Output Total 3500 / 3500 3200 / 3200
Balance -2300 / -2300 -1244 / -1244
Physical Exam
-
General: Well Developed and No Apparent Distress
HEENT: Normocephalic, Atraumatic and Moist Mucous Membranes
Respiratory: Clear to Auscultation
Cardiac: Regular Rhythm and S1/S2; Negative Murmur, Rub or Gallop
GI: Soft, Nontender, Nondistended and Normal Bowel Sounds; Negative Organomegaly
Rectal: Deferred by Provider
Genito-urinary: Garner
Musculoskeletal: No Clubbing, No Cyanosis and No Edema
Skin: Negative Rash
Neuro: Nonfocal/Grossly Intact
[2024-08-08] MEDS: SODIUM BICARBONATE 1150 MEQ IV (03:55)
[2024-08-08 06:00] VITALS: BMI 21.9
[2024-08-08 07:57] VITALS: BP 147/78
[2024-08-08 08:02] LABS: Troponin I 0.043 ng/ml
[2024-08-08 08:20] LABS: Blood Urea Nitrogen 73 mg/dl (9-20); Carbon Dioxide 25 mmol/L (22-30); Chloride 100 mmol/L (98-107); Estimated Creatinine Clearance 12 ml/min; Glucose 89 mg/dl (70-99); Potassium 4.4 mmol/L (3.5-5.1); Sodium 140 mmol/L (135-145); eGFR 11.17
[2024-08-08] MEDS: TOPROL XL 25 MG PO (08:23)
[2024-08-08] MEDS: FLOMAX 0.4 MG PO (08:23)
[2024-08-08 08:37] LABS: TSH 0.92 uIU/ml (0.47-4.68)
--- NOTE | 2024-08-08 09:22 | W.PN.HOSP.TC ---
Addendum entered and electronically signed by Aminta Jones MD 08/08/24 12:49:
updated son and DIL on the phone extensively.
total time spent 51 min
Original Note:
Today's Communication/Plan
-
see A/P
Assessment / Plan
Assessment / Plan
IMPRESSION:
75 years old male with no prior medical history who presented with generalized fatigue, low oral intake, weight loss, SONIA with severe urinary retention.
SONIA with severe obstructive uropathy and hydronephrosis
Hematuria
Elevated PSA 24 on outpatient blood work on 08/04/24
Suspected BPH
Metabolic acidosis
Hyperkalemia
Chronic normocytic anemia.
Reported significant weight loss and poor appetite
Atrial flutter, new diagnosis
Cardiomyopathy, new diagnosis
PLAN:
CT of the AP:
There is severe bilateral hydroureteronephrosis. Severe prostatomegaly. Garner catheter is present within the urinary bladder with associated gas anteriorly, likely sequelae of instrumentation. There is circumferential urinary bladder wall thickening
which may be due to chronic outlet obstruction, infection, possible lesion. Consider direct visualization for further evaluation.
Garner catheter placed in ED with 3 L urine drained.
Admission hyperkalemia treated and improved.
Maintain Garner
Urology/nephrology on board
Cont IV fluids without further bicarbonate
Started on Flomax
Low potassium diet
Atrial flutter new diagnosis.
Echocardiogram as below.
Continue telemetry monitoring
Initiated on metoprolol
hold off on initiation of anticoagulation given acute urinary retention/SONIA and hematuria.
Cardiomyopathy
Echocardiogram: Global hypokinesis of LV with LVEF 45%. Mild to moderate TR with PA pressure of 55�60.
Plan is for ischemic workup as outpatient.
Initiated on Toprol
Eventually adjustment of GDMT as renal function improves.
Elevated troponin suspect non-ischemic myocardial injury
Troponin 0.043, cont to trend until peak
EKG A flutter
Chronic normocytic anemia baseline patient reports colonoscopy about 2 years ago.
Iron deficiency
Follow hemoglobin
IV iron
Monitor hemoglobin with hematuria
Full code
Mechanical DVT phylaxis
Anticipated Discharge: 24 - 48 hours
Subjective/Interval History
-
Date of Service: August 08, 2024
Objective Data
-
Labs:
Laboratory Results
08/08/24
06:11
Sodium 140
Potassium 4.4
Chloride 100
Carbon Dioxide 25
BUN 73 H
Creatinine 5.0 H*
Glucose 89
Calcium 8.0 L
Vital Signs:
Vital Signs
Temp Pulse Resp BP Pulse Ox
36.7 C 77 16 147/78 96
08/08/24 07:57 08/08/24 08:23 08/08/24 07:57 08/08/24 08:23 08/08/24 07:57
I&O
08/07/24 08/08/24 08/09/24
06:59 06:59 06:59
Intake Total 6 / 1955 1200 / 1200 120 / 120
Output Total 3200 / 3200 1400 / 1400 2560 / 2560
Balance -1244 / -1244 -200 / -200 -2440 / -2440
Review of Systems
-
All other systems: Reviewed and negative
Physical Exam
-
General: Well Developed, No Apparent Distress, Comfortable and Conversant
HEENT: Normocephalic, Atraumatic and Moist Mucous Membranes
Respiratory: Clear to Auscultation and Non Labored Respirations; Negative Accessory Resp Muscle Use
Cardiac: Regular Rhythm and S1/S2; Negative Murmur, Rub or Gallop
GI: Soft, Nontender, Nondistended and Normal Bowel Sounds; Negative Organomegaly
Rectal: Deferred by Provider
Genito-urinary: Garner
Musculoskeletal: No Clubbing, No Cyanosis and No Edema
Skin: Negative Rash
Neuro: Awake
Psych: Calm and Intact Judgement/Insight
Data Reviewed
-
CT Scan: Report Reviewed by me
Labs: Labs Reviewed by me
[2024-08-08] MEDS: NSS 1000 IV ×2 (10:25→20:54)
--- NOTE | 2024-08-08 11:37 | W.PN.NEPH.PH ---
Today's Communication / Plan
-
Can discontinue further IV fluids after current bag completed
Follow BMP
Assessment/Plan
-
Assessment
acute kidney injury
Bilateral hydronephrosis
BPH
Elevated PSA
Weight loss, decreased appetite
Hyperkalemia
Metabolic acidosis
Plan
Obtain records from primary for blood work 2 years ago
follow BMP, creatinine down to 5 and remains grossly nonoliguric around 2.5 L
Remains azotemic but improving
I am not sure how much better his kidney function will be given the unknown duration of his obstruction
Currently no acute dialysis requirement
Hemodynamically stable
Flomax
We can discontinue IV fluids after current bag completed
-
-
Date of Service: August 08, 2024
CC / HPI / ROS
-
Chief Complaint:
SONIA
History of Present Illness:
SONIA/Cr down to 5
nonoliguric with flanagan for obstructive uropathy
K down to 4.4
acidosis resolved
Review of Systems:
no CP/SOB
Nonoliguric via flanagan ~ 2.5 liters
Weights up
Labs
-
Labs:
WBC 6.6 10^3/uL (4.8-10.8) 08/07/24 05:14
RBC 2.65 10^6/uL (4.70-6.10) L 08/07/24 05:14
Hgb 7.9 g/dL (13.0-18.0) L 08/07/24 05:14
Hct 23.3 % (39.0-52.0) L 08/07/24 05:14
Plt Count 222 10^3/uL (130-400) 08/07/24 05:14
Sodium 140 mmol/L (135-145) 08/08/24 06:11
Potassium 4.4 mmol/L (3.5-5.1) 08/08/24 06:11
Chloride 100 mmol/L (98-107) 08/08/24 06:11
Carbon Dioxide 25 mmol/L (22-30) 08/08/24 06:11
BUN 73 mg/dl (9-20) H 08/08/24 06:11
Creatinine 5.0 mg/dL (0.7-1.3) H* 08/08/24 06:11
eGFR 11.17 08/08/24 06:11
Glucose 89 mg/dl (70-99) 08/08/24 06:11
Calcium 8.0 mg/dl (8.4-10.2) L 08/08/24 06:11
Albumin 4.6 g/dl (3.5-5.0) 08/05/24 12:49
Physical Exam
-
Vital Signs:
Vital Signs
Temp Pulse Resp BP Pulse Ox
98.1 F 77 16 147/78 96
08/08/24 07:57 08/08/24 08:23 08/08/24 07:57 08/08/24 08:23 08/08/24 07:57
Cardiovascular:: Regular rate and rhythm
Respiratory:: Bilateral: CTA
Lung Excursion:: Normal
Abdomen:: Nontender and Soft
Bowel Sounds:: Normal
Extremity Edema:: None: Bilateral:
Flanagan Catheter: Yes
[2024-08-08 11:59] VITALS: BP 128/61
--- NOTE | 2024-08-08 12:40 | W.PN.CARDCBS ---
Today's Communication / Plan
-
In sinus rhythm at present
Continue Toprol for atrial tachycardia/atrial flutter
Ejection fraction mildly reduced and continue Toprol
Continue to follow anemia and when stable might consider anticoagulation
Will check lipids with coronary calcifications noted
Impression / Plan
-
PCP: Dr. Turner
Has not seen cardiology in past
Impression:
Atrial flutter versus atrial flutter
Acute kidney injury/severe obstructive uropathy
Anemia
hydronephrosis
Coronary calcification on abdominal CT
Urinary retention
Suspected BPH
Weight loss, poor appetite
Generalized fatigue
No previous cardiovascular testing noted
CT abdomen/pelvis: Severe bilateral hydroureternephrosis, severe prostamegaly. In view of lung bases there is coronary artery calcifications, mild christine and aortic annular calcifications, mild cardiomegaly
EKG 08/07/2024 0000, personally reviewed: Probable atrial flutter with variable AV block, IVCD, left axis deviation, nonspecific ST-T wave abnormality
Echocardiogram 08/07/2024: Ejection fraction 45%, global hypokinesis, mild to moderate TR PA systolic of 55-60 mm Hg
Plan:
He has either atrial tachycardia or atrial flutter. In sinus rhythm at present on Toprol. [id number] score is 3. Currently has hematuria and anemia so would hold off on starting anticoagulation but consider starting in future.
Ejection fraction is mildly reduced. There are no signs or symptoms of CHF. Continue Toprol. No GHADA/ARB/Aldactone with severe renal insufficiency.
He continues with severe renal sufficiency.
Coronary calcification on CT abdomen: He has no anginal symptoms. Check lipids
No hemoglobin ordered today but continue to follow hemoglobin and after workup may consider anticoagulation
Progress Note - Receivable Manager
Subjective
Date of Service: August 08, 2024
No complaints. Wants to go home
Objective
Labs:
08/07/24 05:14
08/08/24 06:11
Labs
Hgb 7.9 g/dL (13.0-18.0) L 08/07/24 05:14
Hct 23.3 % (39.0-52.0) L 08/07/24 05:14
Plt Count 222 10^3/uL (130-400) 08/07/24 05:14
Sodium 140 mmol/L (135-145) 08/08/24 06:11
Potassium 4.4 mmol/L (3.5-5.1) 08/08/24 06:11
BUN 73 mg/dl (9-20) H 08/08/24 06:11
Creatinine 5.0 mg/dL (0.7-1.3) H* 08/08/24 06:11
Glucose 89 mg/dl (70-99) 08/08/24 06:11
Troponins
08/08/24
06:11
Troponin I 0.043 H*
Vital Signs and I&O:
Vital Signs
Temp Pulse Resp BP Pulse Ox
98.8 F 61 16 101/59 96
08/08/24 11:59 08/08/24 11:59 08/08/24 11:59 08/08/24 11:59 08/08/24 11:59
Vital Signs
Temp Pulse Resp BP Pulse Ox
98.8 F 61 16 101/59 96
08/08/24 11:59 08/08/24 11:59 08/08/24 11:59 08/08/24 11:59 08/08/24 11:59
Intake & Output
08/06/24 08/07/24 08/08/24 08/09/24
06:59 06:59 06:59 06:59
Intake Total 1200 / 1200 1956 / 1956 1200 / 1200 120 / 120
Output Total 3500 / 3500 3200 / 3200 1400 / 1400 2560 / 2560
Balance -2300 / -2300 -1244 / -1244 -200 / -200 -2440 / -2440
Physical Exam
Physical Exam
General: Well developed, well nourished in NAD.
Neck: Supple, no JVD, HJR, carotids +2 B/L, no bruits bilaterally.
Heart: Non displaced PMI, RRR, no murmurs, No S3, S4, no rubs.
Lungs: Scattered rhonchi
Abdomen: Normal bowel sounds, soft, non-tender, non-distended.
Extremities: No clubbing, cyanosis or edema bilaterally.
Neuro: Grossly nonfocal, awake, alert and oriented x3.
[2024-08-08 13:42] LABS: Troponin I 0.031 ng/ml
[2024-08-08] MEDS: FERRLECIT 110 MG IV (14:28)
[2024-08-08 15:23] VITALS: BP 146/79
[2024-08-08] MEDS: MIRALAX 17 GRAMS PO (17:56)
[2024-08-08 19:00] VITALS: BP 124/62
[2024-08-08] MEDS: SENOKOT-S 1 TABLET PO (20:46)
[2024-08-08 23:00] VITALS: BP 142/71
[2024-08-09 00:30] LABS: Troponin I 0.036 ng/ml
[2024-08-09 03:00] VITALS: BP 143/73
[2024-08-09 06:12] VITALS: BMI 22.1
[2024-08-09 07:00] VITALS: BP 162/79
[2024-08-09] MEDS: NSS 1000 IV (07:17)
[2024-08-09 08:39] LABS: Hematocrit 25.1 % (39.0-52.0); Mean Corp Hgb Conc. 31.9 g/dL (33.0-37.0); Mean Corpuscular Hgb 29.3 pg (27.0-31.0); Mean Corpuscular Volume 91.9 fL (80.0-94.0); Mean Platelet Volume 10.4 fL (7.4-10.4); Platelet Count 224 10^3/uL (130-400); Red Blood Cell Count 2.73 10^6/uL (4.70-6.10); Red Cell Dist. Width 13.7 % (11.5-14.5)
[2024-08-09] MEDS: SENOKOT-S 1 TABLET PO ×2 (08:48→19:41)
[2024-08-09] MEDS: TOPROL XL 25 MG PO (08:48)
[2024-08-09] MEDS: FLOMAX 0.4 MG PO (08:48)
[2024-08-09] MEDS: MIRALAX 17 GRAMS PO (08:49)
[2024-08-09 09:14] LABS: Blood Urea Nitrogen 71 mg/dl (9-20); Calcium 7.8 mg/dl (8.4-10.2); Carbon Dioxide 23 mmol/L (22-30); Chloride 106 mmol/L (98-107); Estimated Creatinine Clearance 12 ml/min; Glucose 92 mg/dl (70-99); HDL Cholesterol 39 mg/dl; LDL Cholesterol, Calculated 98 mg/dl; Magnesium 1.4 mg/dl (1.6-2.3); Sodium 144 mmol/L (135-145); Total Cholesterol 158 mg/dl (50-199); Triglyceride 109 mg/dl (10-149); Very Low Density Lipoprotein 21 mg/dl (0-30); eGFR 11.73
--- NOTE | 2024-08-09 09:30 | W.PN.HOSP.TC ---
Today's Communication/Plan
-
see A/P
Assessment / Plan
Assessment / Plan
IMPRESSION:
75 years old male with no prior medical history who presented with generalized fatigue, low oral intake, weight loss, SONIA with severe urinary retention.
SONIA with severe obstructive uropathy and hydronephrosis
Hematuria
Elevated PSA 24 on outpatient blood work on 08/04/24
Suspected BPH
Metabolic acidosis
Hyperkalemia
Chronic normocytic anemia.
Reported significant weight loss and poor appetite
Atrial flutter, new diagnosis
Cardiomyopathy, new diagnosis
PLAN:
CT of the AP:
There is severe bilateral hydroureteronephrosis. Severe prostatomegaly. Garner catheter is present within the urinary bladder with associated gas anteriorly, likely sequelae of instrumentation. There is circumferential urinary bladder wall thickening
which may be due to chronic outlet obstruction, infection, possible lesion. Consider direct visualization for further evaluation.
Garner catheter placed in ED with 3 L urine drained.
Admission hyperkalemia treated and improved.
Maintain Garner
s/p IV fluids
Started on Flomax
Low potassium diet
Urology/nephrology on board
Atrial flutter new diagnosis.
Echocardiogram as below.
Continue telemetry monitoring
Initiated on metoprolol
hold off on initiation of anticoagulation given acute urinary retention/SONIA and hematuria.
Cardiomyopathy
Echocardiogram: Global hypokinesis of LV with LVEF 45%. Mild to moderate TR with PA pressure of 55�60.
Plan is for ischemic workup as outpatient.
Initiated on Toprol
Eventually adjustment of GDMT as renal function improves.
Elevated troponin due to non-ischemic myocardial injury
EKG A flutter
Chronic normocytic anemia baseline patient reports colonoscopy about 2 years ago.
Iron deficiency
Follow hemoglobin
IV iron
Monitor hemoglobin with hematuria
Full code
Mechanical DVT ppx
updated son Jeremy on the phone [phone]
Anticipated Discharge: 24 - 48 hours
Subjective/Interval History
-
Date of Service: August 09, 2024
Objective Data
-
Labs:
Laboratory Results
08/09/24
07:45
WBC 7.0
Hgb 8.0 L
Hct 25.1 L
Plt Count 224
Sodium 144
Potassium 5.0
Chloride 106
Carbon Dioxide 23
BUN 71 H
Creatinine 4.8 H*
Glucose 92
Calcium 7.8 L
Vital Signs:
Vital Signs
Temp Pulse Resp BP Pulse Ox
36.4 C 73 17 162/79 95
08/09/24 07:00 08/09/24 08:48 08/09/24 07:00 08/09/24 08:48 08/09/24 07:00
I&O
08/08/24 08/09/24 08/10/24
06:59 06:59 06:59
Intake Total 1200 / 1200 1380 / 1380 480 / 480
Output Total 1400 / 1400 4160 / 4160 2049
Balance -200 / -200 -2780 / -2780 -1570 / -1570
Review of Systems
-
All other systems: Reviewed and negative
Physical Exam
-
General: Well Developed, No Apparent Distress, Comfortable and Conversant
HEENT: Normocephalic, Atraumatic and Moist Mucous Membranes
Respiratory: Clear to Auscultation and Non Labored Respirations; Negative Accessory Resp Muscle Use
Cardiac: Regular Rhythm and S1/S2; Negative Murmur, Rub or Gallop
GI: Soft, Nontender, Nondistended and Normal Bowel Sounds; Negative Organomegaly
Rectal: Deferred by Provider
Genito-urinary: Garner
Musculoskeletal: No Clubbing, No Cyanosis and No Edema
Skin: Negative Rash
Neuro: Awake
Psych: Calm and Intact Judgement/Insight
Data Reviewed
-
CT Scan: Report Reviewed by me
Labs: Labs Reviewed by me
[2024-08-09 11:00] VITALS: BP 125/60
--- NOTE | 2024-08-09 11:09 | W.PN.CARDCBS ---
Today's Communication / Plan
-
Stable cardiology status with no further A. tach or atrial flutter
Continue Toprol
Eventual anticoagulation when renal function and anemia has stabilized
Impression / Plan
-
PCP: Dr. Turner
Has not seen cardiology in past
Impression:
Atrial flutter versus atrial flutter
Acute kidney injury/severe obstructive uropathy
Anemia
hydronephrosis
Coronary calcification on abdominal CT
Urinary retention
Suspected BPH
Weight loss, poor appetite
Generalized fatigue
No previous cardiovascular testing noted
CT abdomen/pelvis: Severe bilateral hydroureternephrosis, severe prostamegaly. In view of lung bases there is coronary artery calcifications, mild christine and aortic annular calcifications, mild cardiomegaly
EKG 08/07/2024 0000, personally reviewed: Probable atrial flutter with variable AV block, IVCD, left axis deviation, nonspecific ST-T wave abnormality
Echocardiogram 08/07/2024: Ejection fraction 45%, global hypokinesis, mild to moderate TR PA systolic of 55-60 mm Hg
Plan:
He has either atrial tachycardia or atrial flutter. In sinus rhythm at present on Toprol. [id number] score is 3. Currently has hematuria and anemia so would hold off on starting anticoagulation but consider starting in future.
Ejection fraction is mildly reduced. There are no signs or symptoms of CHF. Continue Toprol. No GHADA/ARB/Aldactone with severe renal insufficiency.
Renal function has improved slightly but unclear if will improve
Coronary calcification on CT abdomen: He has no anginal symptoms. Start Lipitor with LDL of 98
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
Subjective
Date of Service: August 09, 2024
No complaints
Objective
Labs:
08/09/24 07:45
08/09/24 07:45
Labs
Hgb 8.0 g/dL (13.0-18.0) L 08/09/24 07:45
Hct 25.1 % (39.0-52.0) L 08/09/24 07:45
Plt Count 224 10^3/uL (130-400) 08/09/24 07:45
Sodium 144 mmol/L (135-145) 08/09/24 07:45
Potassium 5.0 mmol/L (3.5-5.1) 08/09/24 07:45
BUN 71 mg/dl (9-20) H 08/09/24 07:45
Creatinine 4.8 mg/dL (0.7-1.3) H* 08/09/24 07:45
Glucose 92 mg/dl (70-99) 08/09/24 07:45
Troponins
08/08/24 08/08/24 08/08/24
06:11 12:21 23:54
Troponin I 0.043 H* 0.031 D 0.036 H*
Vital Signs and I&O:
Vital Signs
Temp Pulse Resp BP Pulse Ox
97.5 F 73 17 162/79 95
08/09/24 07:00 08/09/24 08:48 08/09/24 07:00 08/09/24 08:48 08/09/24 07:00
Vital Signs
Temp Pulse Resp BP Pulse Ox
97.5 F 73 17 162/79 95
08/09/24 07:00 08/09/24 08:48 08/09/24 07:00 08/09/24 08:48 08/09/24 07:00
Intake & Output
08/07/24 08/08/24 08/09/24 08/10/24
06:59 06:59 06:59 06:59
Intake Total 1955 / 1955 1200 / 1200 1380 / 1380 480 / 480
Output Total 3200 / 3200 1400 / 1400 4160 / 4160 2049 / 2049
Balance -1244 / -1244 -200 / -200 -2780 / -2780 -1570 / -1570
Physical Exam
Physical Exam
General: Well developed, well nourished in NAD.
Neck: Supple, no JVD, HJR, carotids +2 B/L, no bruits bilaterally.
Heart: Non displaced PMI, RRR, no murmurs, No S3, S4, no rubs.
Lungs: Scattered rhonchi
Extremities: No clubbing, cyanosis or edema bilaterally.
Neuro: Grossly nonfocal, awake, alert and oriented x3.
--- NOTE | 2024-08-09 11:59 | W.PN.NEPH.PH ---
Today's Communication / Plan
-
Follow BMP
Maintain Flanagan catheter
Assessment/Plan
-
Assessment
acute kidney injury
Bilateral hydronephrosis
BPH
Elevated PSA
Weight loss, decreased appetite
Hyperkalemia
Metabolic acidosis
Plan
Obtain records from primary for blood work 2 years ago
follow BMP, creatinine down to 4.8 and remains grossly nonoliguric around 2.5 L
Remains azotemic but improving
I am not sure how much better his kidney function will be given the unknown duration of his obstruction
Currently no acute dialysis requirement
Hemodynamically stable
Flomax
Continue to follow BMP
-
-
Date of Service: August 09, 2024
CC / HPI / ROS
-
Chief Complaint:
SONIA
History of Present Illness:
SONIA/Cr down to 4.8
nonoliguric with flanagan for obstructive uropathy
K down to 4.4
acidosis resolved
Review of Systems:
no CP/SOB
Nonoliguric via flanagan ~ 2 liters
Weights up
Labs
-
Labs:
WBC 7.0 10^3/uL (4.8-10.8) 08/09/24 07:45
RBC 2.73 10^6/uL (4.70-6.10) L 08/09/24 07:45
Hgb 8.0 g/dL (13.0-18.0) L 08/09/24 07:45
Hct 25.1 % (39.0-52.0) L 08/09/24 07:45
Plt Count 224 10^3/uL (130-400) 08/09/24 07:45
Sodium 144 mmol/L (135-145) 08/09/24 07:45
Potassium 5.0 mmol/L (3.5-5.1) 08/09/24 07:45
Chloride 106 mmol/L (98-107) 08/09/24 07:45
Carbon Dioxide 23 mmol/L (22-30) 08/09/24 07:45
BUN 71 mg/dl (9-20) H 08/09/24 07:45
Creatinine 4.8 mg/dL (0.7-1.3) H* 08/09/24 07:45
eGFR 11.73 08/09/24 07:45
Glucose 92 mg/dl (70-99) 08/09/24 07:45
Calcium 7.8 mg/dl (8.4-10.2) L 08/09/24 07:45
Albumin 4.6 g/dl (3.5-5.0) 08/05/24 12:49
Physical Exam
-
Vital Signs:
Vital Signs
Temp Pulse Resp BP Pulse Ox
97.5 F 73 17 162/79 95
08/09/24 07:00 08/09/24 08:48 08/09/24 07:00 08/09/24 08:48 08/09/24 07:00
Cardiovascular:: Regular rate and rhythm
Respiratory:: Bilateral: CTA
Lung Excursion:: Normal
Abdomen:: Nontender and Soft
Bowel Sounds:: Normal
Extremity Edema:: None: Bilateral:
Flanagan Catheter: Yes
[2024-08-09] MEDS: FERRLECIT 110 MG IV (14:16)
[2024-08-09 15:00] VITALS: BP 145/65
[2024-08-09] MEDS: NSS IV (17:48)
[2024-08-09 23:51] VITALS: BP 146/79
[2024-08-10 05:36] LABS: Hematocrit 24.4 % (39.0-52.0); Hemoglobin 7.8 g/dL (13.0-18.0); Mean Corpuscular Hgb 29.3 pg (27.0-31.0); Mean Corpuscular Volume 91.7 fL (80.0-94.0); Mean Platelet Volume 10.1 fL (7.4-10.4); Platelet Count 220 10^3/uL (130-400); Red Blood Cell Count 2.66 10^6/uL (4.70-6.10); Red Cell Dist. Width 13.7 % (11.5-14.5); White Blood Cell Count 7.8 10^3/uL (4.8-10.8)
[2024-08-10 05:59] LABS: Blood Urea Nitrogen 68 mg/dl (9-20); Calcium 7.9 mg/dl (8.4-10.2); Carbon Dioxide 22 mmol/L (22-30); Chloride 107 mmol/L (98-107); Estimated Creatinine Clearance 12 ml/min; Glucose 95 mg/dl (70-99); Potassium 5.1 mmol/L (3.5-5.1); Sodium 142 mmol/L (135-145); eGFR 11.73
[2024-08-10 06:28] VITALS: BMI 21.9
[2024-08-10 08:05] VITALS: BP 151/87
[2024-08-10] MEDS: MIRALAX 17 GRAMS PO (08:08)
[2024-08-10] MEDS: TOPROL XL 25 MG PO (08:10)
[2024-08-10] MEDS: FLOMAX 0.4 MG PO (08:10)
[2024-08-10] MEDS: SENOKOT-S 1 TABLET PO ×2 (08:10→20:18)
--- NOTE | 2024-08-10 10:01 | W.PN.CARDCBS ---
Addendum entered and electronically signed by Yinka Dobbins MD 08/10/24 12:34:
I saw and examined the patient.
The BACCARAT DEALER or PA's note was reviewed and I agree with the note.
Comment: General: Well developed, well nourished in NAD.
Neck: Supple, no JVD, HJR, carotids +2 B/L, no bruits bilaterally.
Heart: Non displaced PMI, RRR, no murmurs, No S3, S4, no rubs.
Lungs: Clear to auscultation bilaterally, no wheeze, rhonchi, rubs bilaterally,
normal expiratory phase.
Extremities: No clubbing, cyanosis or edema bilaterally.
Neuro: Grossly nonfocal, awake, alert and oriented x3.
Stable cardiology status. Resume telemetry to assess for recurrent atrial tachycardia. Reluctant to anticoagulate with anemia of unknown cause. Continue Toprol for mildly reduced ejection fraction.
Original Note:
Today's Communication / Plan
-
recheck telemetry to re-evaluate rhythm today
will not start anticoagulation during this admission given continued anemia w/ unclear cause. t/c in outpatient setting
start statin for h/o coronary calcification on CT scan, LDL 98-ordered atorvastatin
Impression / Plan
-
PCP: Dr. Turner
Has not seen cardiology in past
Impression:
paroxysmal atrial flutter versus atrial tachycardia
newly diagnosed cardiomyopathy with no evidence of heart failure
Acute kidney injury/severe obstructive uropathy
Anemia
hydronephrosis
Coronary calcification on abdominal CT
Urinary retention
BPH
Weight loss, poor appetite
Generalized fatigue
No previous cardiovascular testing noted
CT abdomen/pelvis: Severe bilateral hydroureternephrosis, severe prostamegaly. In view of lung bases there is coronary artery calcifications, mild christine and aortic annular calcifications, mild cardiomegaly
EKG 08/07/2024 0000, personally reviewed: Probable atrial flutter with variable AV block, IVCD, left axis deviation, nonspecific ST-T wave abnormality
EKG 08/08/24 1248 personally reviewed: NSR, first degree AVB, LAD/LADB, LVH, pacs
Echocardiogram 08/07/2024: Ejection fraction 45%, global hypokinesis, mild to moderate TR PA systolic of 55-60 mm Hg
Plan:
He had either paroxysmal atrial tachycardia or atrial flutter. Repeat EKG 08/08/24 showed sinus rhythm. Currently off telemetry - will restart for further monitoring for atrial arrhythmias. Remains on Toprol. [id number] score is 3. Remains
anemic so would hold off on starting anticoagulation during this admission but consider starting in future if cause of anemia is determined/treated and anemia is stabilized. Should have f/u with [facility] 3 week after discharge-will arrange.
Ejection fraction is mildly reduced. Euvolemic on exam with no symptoms of HF. Continue Toprol. No GHADA/ARB/Aldactone with severe renal insufficiency.
Renal function has improved and stabilized but unclear if will improve further
Coronary calcification on CT abdomen: He has no anginal symptoms. Start Lipitor with LDL of 98-ordered
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
Subjective
Date of Service: August 10, 2024
Anxious to go home
Denies chest pain, shortness of breath, lightheadedness, palpitations, edema.
echo 08/07/24 EF 45%, LV mildly dilated
creatinine 4.8 (down from 6.4 on admission)
No longer having hematuria. Hemoglobin 7.8. (9.1 on admission)
Reviewed notes from nephrology, SONIA thought to be obstructive in origin. Not sure how much better kidney function would improve given unknown duration of obstruction. No acute dialysis requirement.
Objective
Labs:
08/10/24 05:13
08/10/24 05:13
Labs
Hgb 7.8 g/dL (13.0-18.0) L 08/10/24 05:13
Hct 24.4 % (39.0-52.0) L 08/10/24 05:13
Plt Count 220 10^3/uL (130-400) 08/10/24 05:13
Sodium 142 mmol/L (135-145) 08/10/24 05:13
Potassium 5.1 mmol/L (3.5-5.1) 08/10/24 05:13
BUN 68 mg/dl (9-20) H 08/10/24 05:13
Creatinine 4.8 mg/dL (0.7-1.3) H* 08/10/24 05:13
Glucose 95 mg/dl (70-99) 08/10/24 05:13
Troponins
08/08/24 08/08/24 08/08/24
06:11 12:21 23:54
Troponin I 0.043 H* 0.031 D 0.036 H*
Vital Signs and I&O:
Vital Signs
Temp Pulse Resp BP Pulse Ox
98.6 F 92 16 151/87 100
08/10/24 08:05 08/10/24 08:10 08/10/24 08:05 08/10/24 08:10 08/10/24 08:05
Vital Signs
Temp Pulse Resp BP Pulse Ox
98.6 F 92 16 151/87 100
08/10/24 08:05 08/10/24 08:10 08/10/24 08:05 08/10/24 08:10 08/10/24 08:05
Intake & Output
08/08/24 08/09/24 08/10/24 08/11/24
06:59 06:59 06:59 06:59
Intake Total 1200 / 1200 1380 / 1380 2160 / 2160
Output Total 1400 / 1400 4160 / 4160 4250 / 4250
Balance -200 / -200 -2780 / -2780 -2089 / -2089
Physical Exam
Physical Exam
GEN: No distress, awake, Ox3
HEENT: supple, anicteric, mmm
LUNGS: CTA, no wheezes/rales
CV: Reg, S1/S2, no murmur
ABD: soft, BS+, NT/ND
EXT: No edema
NEURO: Gross non-focal
SKIN: No rash
[2024-08-10 11:08] VITALS: BP 139/62
--- NOTE | 2024-08-10 12:04 | W.PN.NEPH.PH ---
Today's Communication / Plan
-
labs in am, check mg and replace as needed
Assessment/Plan
-
Assessment
acute kidney injury
Bilateral hydronephrosis
BPH
Elevated PSA
Weight loss, decreased appetite
Hyperkalemia
Metabolic acidosis
Plan
Obtain records from primary for blood work 2 years ago
cr no change at 4.8, non oliguric with flanagan
follow h/h, decreasing-fe def on IV fe course
recheck mg and replace as needed
I am not sure how much better his kidney function will be given the unknown duration of his obstruction
Currently no acute dialysis requirement
Hemodynamically stable
Flomax
Continue to follow BMP
plan d/c if cr improves consistently , hopefully in next 2-3days
-
-
Date of Service: August 10, 2024
CC / HPI / ROS
-
Chief Complaint:
SONIA
History of Present Illness:
SONIA/Cr no change at 4.8
nonoliguric with flanagan for obstructive uropathy
K at 5.1
acidosis better , bicarb 22
Review of Systems:
no CP/SOB
Nonoliguric via flanagan ~ 2 liters
Weights stable
Labs
-
Labs:
WBC 7.8 10^3/uL (4.8-10.8) 08/10/24 05:13
RBC 2.66 10^6/uL (4.70-6.10) L 08/10/24 05:13
Hgb 7.8 g/dL (13.0-18.0) L 08/10/24 05:13
Hct 24.4 % (39.0-52.0) L 08/10/24 05:13
Plt Count 220 10^3/uL (130-400) 08/10/24 05:13
Sodium 142 mmol/L (135-145) 08/10/24 05:13
Potassium 5.1 mmol/L (3.5-5.1) 08/10/24 05:13
Chloride 107 mmol/L (98-107) 08/10/24 05:13
Carbon Dioxide 22 mmol/L (22-30) 08/10/24 05:13
BUN 68 mg/dl (9-20) H 08/10/24 05:13
Creatinine 4.8 mg/dL (0.7-1.3) H* 08/10/24 05:13
eGFR 11.73 08/10/24 05:13
Glucose 95 mg/dl (70-99) 08/10/24 05:13
Calcium 7.9 mg/dl (8.4-10.2) L 08/10/24 05:13
Albumin 4.6 g/dl (3.5-5.0) 08/05/24 12:49
Physical Exam
-
Vital Signs:
Vital Signs
Temp Pulse Resp BP Pulse Ox
98.5 F 72 16 139/62 100
08/10/24 11:08 08/10/24 11:08 08/10/24 11:08 08/10/24 11:08 08/10/24 11:08
Cardiovascular:: Regular rate and rhythm
Respiratory:: Bilateral: CTA
Lung Excursion:: Normal
Abdomen:: Nontender and Soft
Extremity Edema:: None: Bilateral:
Flanagan Catheter: Yes
[2024-08-10 13:13] LABS: Magnesium 1.2 mg/dl (1.6-2.3)
[2024-08-10] MEDS: FERRLECIT 110 MG IV (13:47)
--- NOTE | 2024-08-10 15:01 | CM ---
CM reviewed chart- not ready for dc
Pt maintained independence throughout room
CM will continue to follow pt for dc planning
No acute HD needs at this time per nephro note
Discharge Disposition- home, follow for VN needs
--- NOTE | 2024-08-10 15:16 | W.PN.HOSP.TC ---
Addendum entered and electronically signed by Geovanni Valenzuela MD 08/10/24 16:39:
Mild protein calorie malnutrition with BMI of 21
Original Note:
Today's Communication/Plan
-
Maintain Garner catheter.
Monitor renal function while off IV fluids.
Follow hemoglobin.
Assessment / Plan
Assessment / Plan
IMPRESSION:
75 years old male with no prior medical history who presented with generalized fatigue, low oral intake, weight loss, SONIA with severe urinary retention.
SONIA with severe obstructive uropathy and hydronephrosis
Hematuria
Elevated PSA 24 on outpatient blood work on 08/04/24
Suspected BPH
Metabolic acidosis
Hyperkalemia
Chronic normocytic anemia.
Reported significant weight loss and poor appetite
Atrial flutter, new diagnosis
Cardiomyopathy, new diagnosis
PLAN:
CT of the AP:
There is severe bilateral hydroureteronephrosis. Severe prostatomegaly. Garner catheter is present within the urinary bladder with associated gas anteriorly, likely sequelae of instrumentation. There is circumferential urinary bladder wall thickening
which may be due to chronic outlet obstruction, infection, possible lesion. Consider direct visualization for further evaluation.
Garner catheter placed in ED with 3 L urine drained.
Admission hyperkalemia treated and improved.
Maintain Garner
s/p IV fluids
Started on Flomax
Low potassium diet
Urology/nephrology on board
Atrial flutter new diagnosis.
Echocardiogram as below.
Continue telemetry monitoring
Initiated on metoprolol
hold off on initiation of anticoagulation given acute urinary retention/SONIA and hematuria.
Cardiomyopathy
Echocardiogram: Global hypokinesis of LV with LVEF 45%. Mild to moderate TR with PA pressure of 55�60.
Plan is for ischemic workup as outpatient.
Initiated on Toprol
Eventually adjustment of GDMT as renal function improves.
Elevated troponin due to non-ischemic myocardial injury
EKG A flutter
Chronic normocytic anemia baseline patient reports colonoscopy about 2 years ago.
Iron deficiency
Follow hemoglobin
IV iron
Monitor hemoglobin with hematuria
Full code
Mechanical DVT ppx
updated son Jeremy on the phone [phone]
Anticipated Discharge: 24 - 48 hours
Subjective/Interval History
-
Date of Service: August 10, 2024
Objective Data
-
Labs:
Laboratory Results
08/10/24
05:13
WBC 7.8
Hgb 7.8 L
Hct 24.4 L
Plt Count 220
Sodium 142
Potassium 5.1
Chloride 107
Carbon Dioxide 22
BUN 68 H
Creatinine 4.8 H*
Glucose 95
Calcium 7.9 L
Vital Signs:
Vital Signs
Temp Pulse Resp BP Pulse Ox
98.5 F 72 16 139/62 100
08/10/24 11:08 08/10/24 11:08 08/10/24 11:08 08/10/24 11:08 08/10/24 11:08
I&O
08/09/24 08/10/24 08/11/24
06:59 06:59 06:59
Intake Total 1380 / 1380 2160 / 2160
Output Total 4160 / 4160 4250 / 4250
Balance -2780 / -2780 -2089 / -2089
Physical Exam
-
General: Well Developed, No Apparent Distress, Comfortable and Conversant
HEENT: Normocephalic, Atraumatic and Moist Mucous Membranes
Respiratory: Clear to Auscultation and Non Labored Respirations; Negative Accessory Resp Muscle Use
Cardiac: Regular Rhythm and S1/S2; Negative Murmur, Rub or Gallop
GI: Soft, Nontender, Nondistended and Normal Bowel Sounds; Negative Organomegaly
Rectal: Deferred by Provider
Genito-urinary: Garner
Musculoskeletal: No Clubbing, No Cyanosis and No Edema
Skin: Negative Rash
Neuro: Awake
Psych: Calm and Intact Judgement/Insight
[2024-08-10 15:38] VITALS: BP 123/56
[2024-08-10] MEDS: LIPITOR 20 MG PO (17:34)
[2024-08-10 19:55] VITALS: BP 126/60
[2024-08-10 23:20] VITALS: BP 165/76
--- NOTE | 2024-08-10 23:48 | W.PN.URO.CBU ---
Today's Communication / Plan
-
keep flanagan at discharge
Assessment / Plan
-
bph r/out acp but creatinie down with flanagan will keep flanagan and for now no perc neph tubes nor prostate bx
Diagnosis
-
Date of Service: August 10, 2024
-
Patient Diagnosis:
Post Op Day:
Patient Diagnosis:
Post Op Day:
Patient Diagnosis: acute on chronuic renal failure in pt with 3 liters urine in bladder and psa 24 bilateal hydro
Post Op Day:
Subjective
-
cannot void
Objective
-
Vital Signs
Temp Pulse Resp BP Pulse Ox
98.7 F 74 18 126/60 97
08/10/24 19:55 08/10/24 19:55 08/10/24 19:55 08/10/24 19:55 08/10/24 19:55
Intake and Output
08/09/24 08/10/24 08/11/24
06:59 06:59 06:59
Intake Total 1380 / 1380 2160 / 2160 1270 / 1270
Output Total 4160 / 4160 4250 / 4250 1300 / 1300
Balance -2780 / -2780 -2090 / -2090 -30 / -30
Intake:
Oral fluids 1380 / 1380 2160 / 2160 1270 / 1270
Output:
Urine, Flanagan 2560 / 2560 4250 / 4250 1300 / 1300
Urine, Voided 1600 / 1600
Laboratory Results
08/10/24 05:13
08/10/24 05:13
Review of Systems
-
: Difficulty Voiding
Physical Exam
-
General - well developed, well nourished, no acute distress
Chest - clear bilaterally
Abdomen - soft, non-tender, positive bowel sounds, no CVAT, no incisional pain or distention
Genitalia - normal
Rectal - normal
Skin - warm & dry with no rash
Neuro - AOx3, no motor deficits
Extremities - no clubbing, no cyanosis, no edema
Incision - clean, dry
Dressing - clean, dry, intact
Care Review
Data Reviewed
Discussed with: Nursing
[2024-08-11 03:00] VITALS: BP 143/79
[2024-08-11 05:36] LABS: % Basophils 0.6 % (0-2); % Eosinophils 5.3 % (0-6); % Immature Granulocytes 0.5 % (0-0.5); % Lymphocytes 20.6 % (20.5-51.1); % Monocytes 10.4 % (1.7-9.3); % Neutrophils 62.6 % (42.2-75.2); Absolute Eosinophils 0.3 10^3/uL (0-0.7); Absolute Lymphocytes 1.3 10^3/uL (1.2-3.4); Absolute Monocytes 0.6 10^3/uL (0.1-0.6); Absolute Neutrophils 3.9 10^3/uL (1.4-6.5); Hemoglobin 7.8 g/dL (13.0-18.0); Mean Corp Hgb Conc. 32.5 g/dL (33.0-37.0); Mean Corpuscular Hgb 29.8 pg (27.0-31.0); Mean Corpuscular Volume 91.6 fL (80.0-94.0); Mean Platelet Volume 10.2 fL (7.4-10.4); Nucleated Red Blood Cells % 0 % (-); Platelet Count 225 10^3/uL (130-400); Red Blood Cell Count 2.62 10^6/uL (4.70-6.10); Red Cell Dist. Width 13.7 % (11.5-14.5); White Blood Cell Count 6.2 10^3/uL (4.8-10.8)
[2024-08-11 06:18] LABS: Blood Urea Nitrogen 64 mg/dl (9-20); Calcium 8.3 mg/dl (8.4-10.2); Carbon Dioxide 22 mmol/L (22-30); Chloride 107 mmol/L (98-107); Estimated Creatinine Clearance 13 ml/min; Glucose 93 mg/dl (70-99); Potassium 4.9 mmol/L (3.5-5.1); Sodium 140 mmol/L (135-145); eGFR 13.38
[2024-08-11 06:27] VITALS: BMI 21.9
[2024-08-11 07:34] VITALS: BP 146/76
[2024-08-11] MEDS: SENOKOT-S 1 TABLET PO (08:13)
[2024-08-11] MEDS: TOPROL XL 25 MG PO (08:13)
[2024-08-11] MEDS: FLOMAX 0.4 MG PO (08:13)
[2024-08-11] MEDS: MIRALAX 17 GRAMS PO (08:13)
--- NOTE | 2024-08-11 09:35 | W.PN.URO.CBU ---
Today's Communication / Plan
-
home when ckear by hospitalist with flanagan
Assessment / Plan
-
bph r/out acp but creatinie down with flanagan will keep flanagan and for now no perc neph tubes nor prostate bx
Diagnosis
-
Date of Service: August 11, 2024
-
Patient Diagnosis:
Post Op Day:
Patient Diagnosis:
Post Op Day:
Patient Diagnosis:
Post Op Day:
Patient Diagnosis: acute on chronuic renal failure in pt with 3 liters urine in bladder and psa 24 bilateal hydro
Post Op Day:
Subjective
-
understands need for flanagan
Objective
-
Vital Signs
Temp Pulse Resp BP Pulse Ox
98.9 F 74 16 146/76 100
08/11/24 07:34 08/11/24 07:34 08/11/24 07:34 08/11/24 07:34 08/11/24 07:34
Intake and Output
08/10/24 08/11/24 08/12/24
06:59 06:59 06:59
Intake Total 2160 / 2160 1270 / 1270
Output Total 4250 / 4250 2800 / 2800
Balance -2090 / -0 -1530 / -1530
Intake:
Oral fluids 2160 / 2160 1270 / 1270
Output:
Urine, Flanagan 4250 / 4250 2800 / 2800
Laboratory Results
08/11/24 05:19
08/11/24 05:19
Review of Systems
-
: Difficulty Voiding
Physical Exam
-
General - well developed, well nourished, no acute distress
Chest - clear bilaterally
Abdomen - soft, non-tender, positive bowel sounds, no CVAT, no incisional pain or distention
Genitalia - normal
Rectal - normal
Skin - warm & dry with no rash
Neuro - AOx3, no motor deficits
Extremities - no clubbing, no cyanosis, no edema
Incision - clean, dry
Dressing - clean, dry, intact
--- NOTE | 2024-08-11 11:03 | CM ---
CM met with pt bedside
Plan for dc with flanagan
VN offered and pt declined
Notes he can care for flanagan at home independently
Discussion with nursing/Yuli
Pt emptying flanagan bedside and very teachable
No concerns with self care of flanagan at home
IMM verbally completed with pt
Copy provided
He is anxious for dc
Discharge Disposition- home with flanagan, declined VN- family transport
[2024-08-11 11:40] VITALS: BP 129/62
--- NOTE | 2024-08-11 12:22 | W.PN.CARDCBS ---
Addendum entered and electronically signed by Yinka Dobbins MD 08/11/24 14:04:
I saw and examined the patient.
The STUDENT DEAN or PA's note was reviewed and I agree with the note.
Comment: General: Well developed, well nourished in NAD.
Neck: Supple, no JVD, HJR, carotids +2 B/L, no bruits bilaterally.
Heart: Non displaced PMI, RRR, no murmurs, No S3, S4, no rubs.
Lungs: Scattered rhonchi
Extremities: No clubbing, cyanosis or edema bilaterally.
Neuro: Grossly nonfocal, awake, alert and oriented x3.
Stable cardiology status for discharge. No further atrial tachycardia. Reluctant to anticoagulate with anemia of unknown cause. Will increase Toprol to 25 mg p.o. twice daily and arrange follow-up. Discussed with nursing
Original Note:
Today's Communication / Plan
-
increase Toprol to 25 mg bid
okay for discharge from cardiovascular standpoint
will arrange f/u with [facility] cardiology for 2-3 weeks
Impression / Plan
-
PCP: Dr. Turner
Has not seen cardiology in past
Impression:
paroxysmal atrial flutter versus atrial tachycardia
newly diagnosed cardiomyopathy with no evidence of heart failure
Acute kidney injury/severe obstructive uropathy
Anemia
hydronephrosis
Coronary calcification on abdominal CT
Urinary retention
BPH
Weight loss, poor appetite
Generalized fatigue
No previous cardiovascular testing noted
CT abdomen/pelvis: Severe bilateral hydroureternephrosis, severe prostamegaly. In view of lung bases there is coronary artery calcifications, mild christine and aortic annular calcifications, mild cardiomegaly
EKG 08/07/2024 0000, personally reviewed: Probable atrial flutter with variable AV block, IVCD, left axis deviation, nonspecific ST-T wave abnormality
EKG 08/08/24 1248 personally reviewed: NSR, first degree AVB, LAD/LADB, LVH, pacs
Echocardiogram 08/07/2024: Ejection fraction 45%, global hypokinesis, mild to moderate TR PA systolic of 55-60 mm Hg
Plan:
He had either paroxysmal atrial tachycardia or atrial flutter. Repeat EKG 08/08/24 showed sinus rhythm. Telemetry personally reviewed: NSR w/ frequent pacs. Remains on Toprol 25 mg daily, will increase Toprol to 25 mg BID-I ordered. [id number]
score is 3. Remains anemic so would hold off on starting anticoagulation during this admission but consider starting in future if cause of anemia is determined/treated and anemia is stabilized. Should have f/u with [facility] 2-3 week after
discharge-will arrange.
Ejection fraction is mildly reduced. Euvolemic on exam with no symptoms of HF. Continue Toprol. No GHADA/ARB/Aldactone with severe renal insufficiency.
Renal function has improved and stabilized but unclear if will improve further
Coronary calcification on CT abdomen: He has no anginal symptoms. Start Lipitor with LDL of 98-ordered
Progress Note - Supervisor Receiving And Processing
Subjective
Date of Service: August 11, 2024
pt anxious to be discharge
no SOB, CP, palpitations, lightheadedness
Hgb stable 7.8
creatinine 4.3, continues to trend down
Objective
Labs:
08/11/24 05:19
08/11/24 05:19
Labs
Hgb 7.8 g/dL (13.0-18.0) L 08/11/24 05:19
Hct 24.0 % (39.0-52.0) L 08/11/24 05:19
Plt Count 225 10^3/uL (130-400) 08/11/24 05:19
Sodium 140 mmol/L (135-145) 08/11/24 05:19
Potassium 4.9 mmol/L (3.5-5.1) 08/11/24 05:19
BUN 64 mg/dl (9-20) H 08/11/24 05:19
Creatinine 4.3 mg/dL (0.7-1.3) H* 08/11/24 05:19
Glucose 93 mg/dl (70-99) 08/11/24 05:19
Troponins
08/08/24 08/08/24
12:21 23:54
Troponin I 0.031 D 0.036 H*
Vital Signs and I&O:
Vital Signs
Temp Pulse Resp BP Pulse Ox
98 F 71 16 129/62 97
08/11/24 11:40 08/11/24 11:40 08/11/24 11:40 08/11/24 11:40 08/11/24 11:40
Vital Signs
Temp Pulse Resp BP Pulse Ox
98 F 71 16 129/62 97
08/11/24 11:40 08/11/24 11:40 08/11/24 11:40 08/11/24 11:40 08/11/24 11:40
Intake & Output
08/09/24 08/10/24 08/11/24 08/12/24
06:59 06:59 06:59 06:59
Intake Total 1380 / 1380 2160 / 2160 1270 / 1270
Output Total 4160 / 4160 4250 / 4250 2800 / 2800
Balance -2780 / -2780 -2090 / -0 -1530 / -1530
Physical Exam
Physical Exam
GEN: No distress, awake, Ox3
HEENT: supple, anicteric, mmm
LUNGS: CTA, no wheezes/rales
CV: Reg w/ occ ectopic beats S1/S2, no murmur
ABD: soft, BS+, NT/ND
EXT: No edema
NEURO: Gross non-focal
SKIN: No rash
--- NOTE | 2024-08-11 13:22 | W.PN.NEPH.PH ---
Today's Communication / Plan
-
see plan
Assessment/Plan
-
Assessment
acute kidney injury
Bilateral hydronephrosis
BPH
Elevated PSA
Weight loss, decreased appetite
Hyperkalemia
Metabolic acidosis
Plan
cr better at 4.3, non oliguric with flanagan
follow h/h, stable-fe def on IV fe course
low mg- replace, add po magnesium at d/c
I am not sure how much better his kidney function will be given the unknown duration of his obstruction
Currently no acute dialysis requirement
Hemodynamically stable
Flomax
Continue to follow BMP
no records from primary for blood work 2 years ago
Pt adamant to get discharged
check BMP on and Saturday
f/u nephro, and PCP
d/w pt and son at bedside
d/w primary
-
-
Date of Service: August 11, 2024
CC / HPI / ROS
-
Chief Complaint:
SONIA
History of Present Illness:
SONIA/Cr better at 4.3
nonoliguric with flanagan for obstructive uropathy
K normal
acidosis better , bicarb 22
mg low 1.2
Review of Systems:
no CP/SOB
Nonoliguric via flanagan ~ 2 liters
Weights stable
Labs
-
Labs:
WBC 6.2 10^3/uL (4.8-10.8) 08/11/24 05:19
RBC 2.62 10^6/uL (4.70-6.10) L 08/11/24 05:19
Hgb 7.8 g/dL (13.0-18.0) L 08/11/24 05:19
Hct 24.0 % (39.0-52.0) L 08/11/24 05:19
Plt Count 225 10^3/uL (130-400) 08/11/24 05:19
Sodium 140 mmol/L (135-145) 08/11/24 05:19
Potassium 4.9 mmol/L (3.5-5.1) 08/11/24 05:19
Chloride 107 mmol/L (98-107) 08/11/24 05:19
Carbon Dioxide 22 mmol/L (22-30) 08/11/24 05:19
BUN 64 mg/dl (9-20) H 08/11/24 05:19
Creatinine 4.3 mg/dL (0.7-1.3) H* 08/11/24 05:19
eGFR 13.38 08/11/24 05:19
Glucose 93 mg/dl (70-99) 08/11/24 05:19
Calcium 8.3 mg/dl (8.4-10.2) L 08/11/24 05:19
Albumin 4.6 g/dl (3.5-5.0) 08/05/24 12:49
Physical Exam
-
Vital Signs:
Vital Signs
Temp Pulse Resp BP Pulse Ox
98 F 71 16 129/62 97
08/11/24 11:40 08/11/24 11:40 08/11/24 11:40 08/11/24 11:40 08/11/24 11:40
Cardiovascular:: Regular rate and rhythm
Respiratory:: Bilateral: CTA
Lung Excursion:: Normal
Abdomen:: Nontender and Soft
Extremity Edema:: None: Bilateral:
Flanagan Catheter: Yes
[2024-08-11] MEDS: MAGNESIUM SULFATE 50 IV (13:50)
[2024-08-11] MEDS: MAGNESIUM OXIDE 500 MG PO (13:51)
--- NOTE | 2024-08-11 14:13 | W.DS.TRANS ---
DC Summary - Almond Huller
-
Discharge Instructions:
Discharge Diagnosis/Procedures Acute kidney injury with obstructive uropathy,
possible chronic kidney disease
Atrial fibrillation, new diagnosis.
Diet Other diet
Additional Diets 2 Gram potassium
Activity No restrictions
Blood Work BMP and Mg level on 08/13, 08/17
Instructions:
Stand-Alone Forms:
Changes to Home Medications: Yes
Discharge Medications:
DC Medications w/original date entered in [employer]
atorvastatin 20 mg tablet 20 mg PO QPM #30 tabs 08/11/24
magnesium oxide 500 mg PO DAILY #30 tabs 08/11/24
metoprolol succinate 25 mg tablet,extended release 24 hr 25 mg PO BID #60 tabs 08/11/24
polyethylene glycol 3350 17 gram oral powder packet (HealthyLax) 17 g PO DAILY #30 ea 08/11/24
tamsulosin 0.4 mg capsule 0.4 mg PO DAILY #30 caps 08/11/24
Home Medication Changes
All of above
Pending Results: No
[2024-08-11 15:31] VITALS: BP 135/70
== END 2024-08-11 16:56 | disposition home or self-care (01) | DRG 683 ==
LOC: 3 WEST ACU 16:29
PROVIDERS: Emergency Medicine; Internal Medicine; Nurse Practitioner Gerontology; Specialist; ADMITTING PHYSICIAN Internal Medicine; CONSULT PHYSICIAN Internal Medicine Medical Oncology; CONSULT PHYSICIAN Specialist; EMERGENCY PHYSICIAN Emergency Medicine; FAMILY PHYSICIAN Family Medicine; OTHER PHYSICIAN Internal Medicine Cardiovascular Disease
DX: N17.9 Acute kidney failure, unspecified (principal); E44.1 Mild protein-calorie malnutrition; E87.20 Acidosis, unspecified; I42.9 Cardiomyopathy, unspecified; I48.92 Unspecified atrial flutter; I5A Non-ischemic myocardial injury (non-traumatic); D64.9 Anemia, unspecified; R63.4 Abnormal weight loss; E78.5 Hyperlipidemia, unspecified; E87.5 Hyperkalemia; I25.10 Atherosclerotic heart disease of native coronary artery without angina pectoris; I44.30 Unspecified atrioventricular block; I48.91 Unspecified atrial fibrillation; N13.30 Unspecified hydronephrosis; N40.1 Benign prostatic hyperplasia with lower urinary tract symptoms; R97.20 Elevated prostate specific antigen [PSA]; N39.490 Overflow incontinence; R35.0 Frequency of micturition; R31.9 Hematuria, unspecified; R63.0 Anorexia; R79.89 Other specified abnormal findings of blood chemistry; Z96.642 Presence of left artificial hip joint; Z68.21 Body mass index [BMI] 21.0-21.9, adult
CPT/HCPCS: 51702; 74176; 80048; 80053; 80061; 81003; 82962; 83540; 83550; 83735; 84443; 84484; 85025; 85027; 86803; 93005; 93306; 96374; 96375; 99291; J2916

== ENCOUNTER → 2024-08-20 09:03 | Outpatient (REF) | payer OTHER, SELFPAY ==
[2024-08-20 11:00] LABS: Albumin 4.4 g/dl (3.5-5.0); Blood Urea Nitrogen 69 mg/dl (9-20); Carbon Dioxide 19 mmol/L (22-30); Chloride 106 mmol/L (98-107); Glucose 97 mg/dl (70-99); Phosphorus 4.3 mg/dl (2.5-4.5); Potassium 4.8 mmol/L (3.5-5.1); Sodium 144 mmol/L (135-145); eGFR 12.67
== END ==
LOC: REG 09:03
PROVIDERS: ATTENDING PHYSICIAN Specialist
DX: R79.89 Other specified abnormal findings of blood chemistry (principal); R63.4 Abnormal weight loss; E87.5 Hyperkalemia
CPT/HCPCS: 36415; 80069

== ENCOUNTER → 2024-08-27 10:29 | Outpatient (REF) | payer OTHER, SELFPAY ==
[2024-08-27 11:44] LABS: Albumin 4.3 g/dl (3.5-5.0); Blood Urea Nitrogen 55 mg/dl (9-20); Calcium 9.3 mg/dl (8.4-10.2); Carbon Dioxide 20 mmol/L (22-30); Chloride 107 mmol/L (98-107); Glucose 97 mg/dl (70-99); Phosphorus 3.6 mg/dl (2.5-4.5); Sodium 143 mmol/L (135-145); eGFR 16.03
== END ==
LOC: REG 10:29
PROVIDERS: ATTENDING PHYSICIAN Internal Medicine Medical Oncology; FAMILY PHYSICIAN Family Medicine
DX: R63.4 Abnormal weight loss (principal); R79.89 Other specified abnormal findings of blood chemistry; N13.30 Unspecified hydronephrosis
CPT/HCPCS: 36415; 80069

== ENCOUNTER → 2025-01-26 14:20 | Outpatient (REF) | payer OTHER, SELFPAY | LOC: PAVMRI 14:20 | PROVIDERS: ATTENDING PHYSICIAN Specialist; PRIMARYCARE PHYSICIAN Family Medicine | DX: R33.9 Retention of urine, unspecified (principal); R97.20 Elevated prostate specific antigen [PSA] | CPT/HCPCS: 72197; A9575 ==

== ENCOUNTER 2025-03-25 06:05 | Day surgery (SDC) | payer OTHER, SELFPAY ==
[2025-03-16 10:50] LABS: Hematocrit 33.4 % (39.0-52.0); Hemoglobin 10.7 g/dL (13.0-18.0); Mean Corpuscular Hgb 30.4 pg (27.0-31.0); Mean Corpuscular Volume 94.9 fL (80.0-94.0); Mean Platelet Volume 10.5 fL (7.4-10.4); Platelet Count 228 10^3/uL (130-400); Red Blood Cell Count 3.52 10^6/uL (4.70-6.10); Red Cell Dist. Width 13.3 % (11.5-14.5)
[2025-03-16 12:03] LABS: Blood Urea Nitrogen 62 mg/dl (9-20); Calcium 9.3 mg/dl (8.4-10.2); Carbon Dioxide 25 mmol/L (22-30); Chloride 105 mmol/L (98-107); Glucose 101 mg/dl (70-99); Potassium 4.9 mmol/L (3.5-5.1); Sodium 143 mmol/L (135-145)
[2025-03-16 13:53] VITALS: BMI 23.4
--- NOTE | 2025-03-22 08:34 | PTCARENOTE ---
[facility] office notified of patients 03/16 BUN 62
--- NOTE | 2025-03-23 08:31 | PTCARENOTE ---
Abn ECG, Dr. Dooley notified, no new interventions requested.
[2025-03-25] VITALS (15 sets, daily range): BP systolic 143–190; BP diastolic 65–108; BMI 23.4
[2025-03-25] MEDS: NORMOSOL-R/PLASMALYTE-A 1000 IV (11:05)
[2025-03-25 15:15] LABS: Hematocrit 27.2 % (39.0-52.0); Hemoglobin 8.8 g/dL (13.0-18.0)
--- NOTE | 2025-03-25 16:53 | W.IMMPOSTOP ---
Surgical Immed Post Op Note
-
Primary Surgeon: Jennyfer
Assisting Surgeon: -
Pre-op Diagnosis: BPH
Post-op Diagnosis: BPH
Procedure Performed: Robotic simple prostatectomy
Anesthesia Type: general
Specimen / Cultures:Prostate adenoma
Estimated Blood Loss: 1000cc
Complications: none
Operative Findings: -
[2025-03-25 17:52] LABS: Hematocrit 28.7 % (39.0-52.0); Hemoglobin 9.4 g/dL (13.0-18.0); Mean Corp Hgb Conc. 32.8 g/dL (33.0-37.0); Mean Corpuscular Hgb 30.8 pg (27.0-31.0); Mean Corpuscular Volume 94.1 fL (80.0-94.0); Mean Platelet Volume 10.6 fL (7.4-10.4); Platelet Count 196 10^3/uL (130-400); Red Blood Cell Count 3.05 10^6/uL (4.70-6.10); White Blood Cell Count 10.6 10^3/uL (4.8-10.8)
[2025-03-25 18:10] LABS: Blood Urea Nitrogen 61 mg/dl (9-20); Calcium 8.4 mg/dl (8.4-10.2); Carbon Dioxide 20 mmol/L (22-30); Chloride 110 mmol/L (98-107); Estimated Creatinine Clearance 23 ml/min; Glucose 155 mg/dl (70-99); Magnesium 1.9 mg/dl (1.6-2.3); Phosphorus 3.8 mg/dl (2.5-4.5); Potassium 4.6 mmol/L (3.5-5.1); Sodium 141 mmol/L (135-145); eGFR 23.25
[2025-03-25] MEDS: LR 1000 IV (19:30)
--- NOTE | 2025-03-25 19:30 | PTCARENOTE ---
Pt a 79 y/o male PMH BPH, hydronephrosis due to obstruction of ureteral orifice , CKD4, HTN and PAFib with diagnosis: BPH, arrived from home with [facility]. Pt went to OR & had a Robotic Simple Prostatectomy,under general anesthesia,
specimen/cultures:Prostate adenoma, EBL 1000cc
Arrived on unit at 18:[address]/CBI. Pt reports no pain, bed in a low position, & son at bedside, bed in a low position, CBI running, call light in reach, care ongoing.
[2025-03-25] MEDS: LIPITOR 20 MG PO (19:55)
[2025-03-25] MEDS: TOPROL XL 25 MG PO (19:55)
[2025-03-25] MEDS: LOKELMA 10 GRAM PO (20:20)
[2025-03-25] MEDS: SENOKOT 17.2 MG PO (20:21)
[2025-03-25] MEDS: SODIUM BICARBONATE 650 MG PO (20:21)
[2025-03-26 03:21] VITALS: BP 148/82
[2025-03-26] MEDS: LR 1000 IV (06:13)
[2025-03-26 07:51] LABS: Hematocrit 25.8 % (39.0-52.0); Hemoglobin 8.6 g/dL (13.0-18.0); Mean Corp Hgb Conc. 33.3 g/dL (33.0-37.0); Mean Corpuscular Hgb 31.4 pg (27.0-31.0); Mean Corpuscular Volume 94.2 fL (80.0-94.0); Mean Platelet Volume 10.8 fL (7.4-10.4); Platelet Count 196 10^3/uL (130-400); Red Blood Cell Count 2.74 10^6/uL (4.70-6.10); Red Cell Dist. Width 13.1 % (11.5-14.5); White Blood Cell Count 9.1 10^3/uL (4.8-10.8)
[2025-03-26 08:06] LABS: Blood Urea Nitrogen 58 mg/dl (9-20); Calcium 8.4 mg/dl (8.4-10.2); Carbon Dioxide 22 mmol/L (22-30); Chloride 111 mmol/L (98-107); Estimated Creatinine Clearance 21 ml/min; Glucose 103 mg/dl (70-99); Potassium 4.5 mmol/L (3.5-5.1); Sodium 143 mmol/L (135-145); eGFR 21.34
[2025-03-26 08:17] VITALS: BP 139/63
--- NOTE | 2025-03-26 08:34 | W.PN.URO.CBU ---
Today's Communication / Plan
-
Trend hematuria
Cardiology recs
OOB/ambulate
Likely discharge today with flanagan in place
Assessment / Plan
-
79M POD 1 s/p Robotic simple prostatectomy
- Clamp and cap CBI this AM and observe hematuria
- Anemia decreased from baseline from intraoperative losses and stable
- Reg diet
- IS
- OOB/ambulate
- Cadiology consult for new LBBB on EKG
Diagnosis
-
Date of Service: March 26, 2025
-
Patient Diagnosis:
BPH
Left bundle branch block
Anemia - blood loss and dilution
CKD
Post Op Day: s/p simple prostatectomy
Subjective
-
feeling well
pain controlled
tolerated PO
Minimal hematuria
No chest pain or SOB
Objective
-
Vital Signs
Temp Pulse Resp BP Pulse Ox
98.8 F 75 18 139/63 96
03/26/25 08:17 03/26/25 08:17 03/26/25 08:17 03/26/25 08:17 03/26/25 08:17
Intake and Output
03/25/25 03/26/25 03/27/25
06:59 06:59 06:59
Intake Total 1240 / 1240
Output Total 300 / 300 57124 / 95453
Balance 940 / 940 -89762 / -66194
Intake:
Oral fluids 240 / 240
IV fluids (Total) 1000 / 1000
Normosol 100 / 100
Output:
True Urine Output from CBI 300 / 300 91793 / 81690
Laboratory Results
03/26/25 06:44
03/26/25 06:44
Physical Exam
-
General - well developed, well nourished, no acute distress
Chest - clear bilaterally
Abdomen - soft, non-tender, positive bowel sounds, no CVAT, no incisional pain or distention
Genitalia - flanagan in place, pink on slow CBI
Rectal - normal
Skin - warm & dry with no rash
Neuro - AOx3, no motor deficits
Extremities - no clubbing, no cyanosis, no edema
Incision - clean, dry
Dressing - clean, dry, intact
[2025-03-26] MEDS: PROSCAR 5 MG PO (08:35)
[2025-03-26] MEDS: LASIX 40 MG PO (08:35)
[2025-03-26] MEDS: SENOKOT 17.2 MG PO (08:36)
[2025-03-26] MEDS: SODIUM BICARBONATE 650 MG PO (08:36)
[2025-03-26] MEDS: TOPROL XL 25 MG PO (08:36)
--- NOTE | 2025-03-26 09:03 | CON.CAR ---
Addendum entered and electronically signed by Michael Moleler MD 03/26/25 18:22:
79-year-old man who underwent prostatectomy March 25 with postop left bundle branch block, Not present in September 2024. EKG at that time suggested anteroseptal [place]
PMH hydronephrosis, creatinine as high as 6.5, 2.9 at the time of surgery, BPH, stage IV CKD, paroxysmal atrial tachycardia or possibly flutter, mild cardiomyopathy, ischemic versus nonischemic, coronary calcification, hyperlipidemia
Meds: Reviewed
Vital signs reviewed and stable
Head neck exam unremarkable, lungs are clear, regular rate rhythm without murmurs JVD okay abdomen benign, extremities without clubbing cyanosis or edema
BUN/creatinine are 58 and 2.9.
Telemetry reviewed -Left bundle branch block, no second-degree AV block, no complex ventricular arrhythmia
Echo 08/07/2024: EF 45%, global hypokinesis, mild to moderate TR, pulmonary artery systolic pressure 55-60 mmHg
Impression:
Left bundle branch block, new since 2023 but with prior IVCD.
Hydronephrosis with obstructive uropathy, Status post prostatectomy 03/21/2025
BPH
CKD stage IV
Hyperkalemia
Paroxysmal atrial tachycardia
Unspecified cardiomyopathy
Coronary calcification seen on CT scan
Hyperlipidemia
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
Plan:
He presents with left bundle branch block on his electrocardiogram but is asymptomatic from a cardiac standpoint. His bundle branch block likely represents fibrosis/scarring of the His-Purkinje system it is not related to an acute ischemic event.
From cardiac standpoint he seems stable. Okay for discharge. We will arrange for outpatient follow-up to further address. Will consider outpatient ischemic evaluation and f/u echo at that time.
Original Note:
Consultation
Consultation Request
Date/Time Consultation Requested: 03/26/2025
Date/Time Consultation Performed: 03/26/2025
Requesting Provider: Dr. Tellez
Performing Provider: [place] PA-C for Dr. Michael Moeller
Reason for Consultation: Abnormal EKG
Medical History
-
History of Present Illness:
79-year-old male with past medical history significant for hydronephrosis with obstructive uropathy, BPH, CKD stage 4, hyperlipidemia, cardiomyopathy, and paroxysmal atrial tachycardia who underwent elective robotic assisted prostatectomy on
03/25/2025. Postop EKG demonstrated new left bundle branch block prompting cardiology consult. Patient reports he is feeling well and offers no cardiac complaints. Denies chest pain, shortness of breath, dizziness, lightheadedness, palpitations.
Past medical history:
Hydronephrosis with obstructive uropathy
BPH
CKD stage IV
Hyperkalemia
Paroxysmal atrial tachycardia
Unspecified cardiomyopathy
Coronary calcification seen on CT scan
Hyperlipidemia
Left hip replacement 1982 following accident
Past Medical History
Past Medical History: Other (As above in HPI)
Past Surgical History: Orthopedic (Left hip replacement after traumatic injury 1982) and Urological (Robotic assisted prostatectomy 03/25/2025)
Social History
Tobacco: Non-Smoker
Alcohol: Occasional (Now rare. In past drank couple alcoholic beverages daily)
Drug: None
Personal:
Living: With Family (Son)
Family History
Family History: Other (Son with DM)
Allergies / Home Medications
Allergy/AdvReac Type Severity Reaction Status Date / Time
No Known Allergies Allergy Verified 03/25/25 10:39
�Medication �Instructions �Recorded �Confirmed �Type
atorvastatin 20 mg tablet 20 mg PO QPM #30 tabs 08/11/24 03/25/25 Rx
metoprolol succinate 25 mg 25 mg PO BID #60 tabs 08/11/24 03/25/25 Rx
tablet,extended release 24 hr
dutasteride 0.5 mg capsule 0.5 mg PO DAILY 03/16/25 03/25/25 History
furosemide 40 mg tablet 40 mg PO DAILY 03/16/25 03/25/25 History
ibuprofen 200 mg tablet 200 mg PO Q6H PRN pain 03/16/25 03/25/25 History
magnesium oxide 400 mg PO DAILY 03/16/25 03/25/25 History
sodium bicarbonate 650 mg tablet 650 mg PO BID 03/16/25 03/25/25 History
sodium zirconium cyclosilicate 10 10 g PO Q48H 03/16/25 03/25/25 History
gram oral powder packet (Lokelma)
Review of Systems
-
History Source: Patient
All other systems: Negative unless noted
Physical Exam
Vital Signs
Temp Pulse Resp BP Pulse Ox
98.8 F 75 18 139/63 96
03/26/25 08:17 03/26/25 08:35 03/26/25 08:17 03/26/25 08:35 03/26/25 08:17
GEN: No distress, awake, Ox3, lying in bed
HEENT: supple, anicteric, mmm
LUNGS: CTA, no wheezes/rales
CV: Reg, S1/S2, no murmur
ABD: soft, BS+, NT/ND
: Indwelling CBI with red-colored urine
EXT: No edema, clubbing or cyanosis
NEURO: Gross non-focal
SKIN: No rash
Lab Results
03/26/25 06:44
03/26/25 06:44
Impression / Plan
-
PCP: Dr. Turner
Care Mgr: Yinka Dobbins
Impression:
Elective admission 03/25/2025 for robotic assisted prostatectomy for obstructive uropathy secondary to BPH
Acute on chronic anemia
Hydronephrosis with obstructive uropathy
BPH
CKD stage IV
Hyperkalemia
Paroxysmal atrial tachycardia
Unspecified cardiomyopathy
Coronary calcification seen on CT scan
Hyperlipidemia
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 abdomen/pelvis August 2024: Severe bilateral hydroureteronephrosis, severe prostatomegaly. In view of lung bases there is coronary artery calcifications, mild christine and aortic annular calcifications, mild cardiomegaly
Echocardiogram 08/07/2024: Ejection fraction 45%, global hypokinesis, mild to moderate TR PA systolic of 55-60 mm Hg
EKG 08/07/2024 Probable atrial flutter with variable AV block, IVCD, left axis deviation, nonspecific ST-T wave abnormality
EKG 08/08/24: NSR, first degree AVB, LAD/LADB, LVH, pacs
Plan:
-Elective admission 03/25/2025 for robotic assisted prostatectomy secondary to obstructive uropathy/BPH, POD#1; indwelling CBI
- Postop EKG shows sinus rhythm with left bundle branch block. EKG in outpatient cardiology office January 2025 showed sinus rhythm with first-degree AV block, nonspecific ST-T wave abnormality in could not exclude old anteroseptal [place]. Review of
telemetry shows sinus rhythm with PVCs, ventricular bigeminy at times. Patient asymptomatic and denies chest pain, shortness of breath, dizziness or lightheadedness.
- Will check echocardiogram this admission. Echocardiogram from August 2024 showed EF of 45% with global hypokinesis and mild to moderate TR.
-Electrolytes stable potassium 4.5, sodium 143, magnesium 1.9
-Patient was found to have coronary calcifications on CT from August 2024. Would consider outpatient ischemic evaluation given coronary calcifications and new left bundle branch block once he has recovered from prostatectomy.
- History of paroxysmal atrial tachycardia which improved with addition of beta-john. Per review of telemetry no tachycardia noted. There has been reluctance to start anticoagulation given chronic anemia, CKD and need for daily self
catheterization and risk for hematuria.
- Cardiomyopathy, unspecified. Remains on beta-john. GDMT limited by CKD stage IV and prior hyperkalemia. Therefore patient not on GHADA/ARB or Aldactone
-Continue atorvastatin for coronary calcification
- Acute on chronic anemia, continue to monitor and trend, current hemoglobin 8.6
HPI 03/26/2025:
79-year-old male with past medical history significant for hydronephrosis with obstructive uropathy, BPH, CKD stage 4, hyperlipidemia, cardiomyopathy, and paroxysmal atrial tachycardia who underwent elective robotic assisted prostatectomy on
03/25/2025. Postop EKG demonstrated new left bundle branch block prompting cardiology consult. Patient reports he is feeling well and offers no cardiac complaints. Denies chest pain, shortness of breath, dizziness, lightheadedness, palpitations.
Data Reviewed
-
EKG: Report Reviewed by me, Discussed with Physician and Discussed with Patient
Labs: Labs Reviewed by me, Discussed with Physician and Discussed with Patient
Old Records: Reviewed
--- NOTE | 2025-03-26 09:04 | CM ---
Cm reviewed medical records. CM met with patient in room. Patent confirmed demographics. Patient lives with son. Patient does not have a history of VN, SNF or DME. Patient is active with his PCP. Patient uses [facility] for medication services.
Patient was offered home care to assist with flanagan. Patient is well versed in flanagan care and declined further assistance at this time.
PLAN: home with family.
[2025-03-26 12:21] VITALS: BP 139/65
== END 2025-03-26 14:42 | disposition home or self-care (01) ==
LOC: SDS 06:05
PROVIDERS: ATTENDING PHYSICIAN Urology; CONSULT PHYSICIAN Internal Medicine Cardiovascular Disease
DX: N40.1 Benign prostatic hyperplasia with lower urinary tract symptoms (principal); R33.8 Other retention of urine
CPT/HCPCS: 55867; 88307; 36415; 80048; 83735; 84100; 85014; 85018; 85027; 86850; 86900; 86901; 93005; 93306